=== PATIENT | female | born 1995 | race Caucasian/White ===

== ENCOUNTER → 2017-12-22 14:30 | Outpatient (CLI) | payer OTHER, SELFPAY ==
--- NOTE | 2017-12-22 14:36 | US_ITS ---
US thyroid HISTORY: ITS.REASON: THYROID NODULE ORDERING PHYSICIAN: Mini Jaramillo PATIENT AGE: 22 years COMPARISON: 09/04/2014 FINDINGS: The right lobe is 4.2 x 1.2 x 1.7 cm. A 4 mm mixed hypoechoic nodule upper pole. 3 mm hypoechoic nodule upper pole. 4 mm hypoechoic nodule mid polar region. 8 mm mixed hypoechoic nodule lower pole and 5 mm mixed hypoechoic nodule lower lobe. 4 mm hypoechoic nodule lower lobe medially. The left lobe is 4.2 x 1.2 x 1.8 cm with multiple hypoechoic nodules including a 3 mm nodule in the upper pole medially, 4 mm upper pole laterally,. There is a mixed solid and cystic nodule in the lower pole 1 cm. Previously there were multiple small hypoechoic regions in the lower pole. The isthmus has an unremarkable appearance. IMPRESSION: Multiple small thyroid nodular lesions which have low level of suspicion for malignancy. Consider 6 month follow-up of the lower pole nodule on the left as it does have a somewhat different appearance but is probably benign
== END ==
PROVIDERS: Family Provider Nurse Practitioner Family; PCP Nurse Practitioner Family; Visit Provider Nurse Practitioner Family
DX: E04.1 Nontoxic single thyroid nodule (principal)
CPT/HCPCS: 76536

== ENCOUNTER → 2018-04-10 07:58 | Outpatient (CLI) | payer OTHER, SELFPAY ==
--- NOTE | 2018-04-10 08:00 | US_ITS ---
US transvaginal HISTORY: Dysfunctional uterine bleeding ITS.REASON: 09/25/2012 PAIN ORDERING PHYSICIAN: Mini Jaramillo PATIENT AGE: 22 years Comparison: 09/25/2012 FINDINGS: UTERUS: The uterus measures 6.7 x 2.2 x 3.4 cm.. Combined endometrial thickness is Endometrial thickness. 0.2 cm RIGHT OVARY: 3.5 x 1.8 x 2.5 cm. There are multiple small follicular cysts noted. LEFT OVARY: 4.6 x 1.8 x 1.7 cm. There are few small follicular cysts noted. CUL-DE-SAC FLUID: No cul-de-sac fluid apparent OTHER FINDINGS: None IMPRESSION: Grossly normal-appearing uterus, small follicular cysts in each ovary noted
== END ==
PROVIDERS: Family Provider Nurse Practitioner Family; PCP Nurse Practitioner Family; Visit Provider Nurse Practitioner Family
DX: R10.2 Pelvic and perineal pain (principal)
CPT/HCPCS: 76830

== ENCOUNTER → 2019-04-06 12:12 | Outpatient (CLI) | payer OTHER, SELFPAY ==
--- NOTE | 2019-04-06 12:21 | XR_ITS ---
EXAM: XR cervical spine 5V HISTORY: ITS.REASON: NECK PAIN ORDERING PHYSICIAN: Mini Jaramillo APRN PATIENT AGE: 23 years COMPARISON: Soft tissue views of the neck 10/02/2016 FINDINGS: There is straightening of the normal curvature suggesting muscle spasm though there is similar straightening of the curvature seen on the soft tissue views of the neck and this may be a normal variation in this patient. C1-C7 appear intact with no fracture or subluxation noted. Oblique films show normal neural foramina bilaterally. Disc spaces are well maintained throughout. The prevertebral soft tissues are normal and the odontoid is normal. IMPRESSION: Grossly normal cervical spine though with possible muscle spasm versus normal variation of curvature as mentioned above
== END ==
PROVIDERS: PCP Nurse Practitioner Family; Visit Provider Nurse Practitioner Family
DX: M43.6 Torticollis (principal); M50.30 Other cervical disc degeneration, unspecified cervical region
CPT/HCPCS: 72050

== ENCOUNTER → 2019-05-08 20:13 | Outpatient (CLI) | payer OTHER, SELFPAY | PROVIDERS: PCP Nurse Practitioner Family; Visit Provider Nurse Practitioner Family | DX: R00.2 Palpitations (principal) ==

== ENCOUNTER → 2019-05-11 10:13 | Outpatient (CLI) | payer OTHER, SELFPAY | PROVIDERS: PCP Nurse Practitioner Family; Visit Provider Nurse Practitioner Family | DX: R00.2 Palpitations (principal) | CPT/HCPCS: 93225; 93226 ==

== ENCOUNTER → 2019-06-01 11:01 | Outpatient (CLI) | payer OTHER, SELFPAY | PROVIDERS: PCP Nurse Practitioner Family; Visit Provider Internal Medicine Cardiovascular Disease | DX: R00.2 Palpitations (principal); R06.02 Shortness of breath; R94.31 Abnormal electrocardiogram [ECG] [EKG]; R00.0 Tachycardia, unspecified | CPT/HCPCS: 93270 ==

== ENCOUNTER → 2019-06-29 15:04 | Outpatient (CLI) | payer OTHER, SELFPAY ==
--- NOTE | 2019-06-29 15:06 | CA_ITS ---
APPROVED REPORT EXAM: Comprehensive 2D, Doppler, and color-flow Echocardiogram Inspector Type: Lakshmi Ibarra CRT Ht: 5 ft 11 in Wt: 241lbs BSA: 2.28 BP: 120/82 mmHg Indications: SVT, palpitations, abn holter, sob, 2D Dimensions LVOT 2.10 cm (M/F) 1.5-2.5 M-Mode Dimensions RVDd 2.10 cm (0.9-2.6) LA Diam 3.70 cm (1.9-4.0) LVDd 5.20 cm (3.5-5.7) Ao Diam 3.10 cm (2.0-3.7) LVDs 3.50 cm (3.5-5.7) AV Cusp 2.10 cm (1.5-2.6) IVSd 0.90 cm (0.6-1.1) PWd 1.10 cm (0.6-1.1) EF (Teich) 60.80% FS 32.70% EDV (Teich) 130.00 mL ESV (Teich) 50.90 mL LV Diastology E/A Ratio 1.40 MED E' 9.46 (< 7 cm/sec) E'/MED E' Ratio 11.00 (>14) LAT E' 21.00 (<10 cm/sec) E/LAT E' Ratio 5.00 (>14) Aortic Valve AoV Peak Avi. 143.00 (50-130 cm/s) AO Peak GR. 8.00 mmHg Mitral Valve MV E Max Avi. 104.00 (40-130 cm/s) MV A Velocity 73.10 (40-130 cm/s) E/A Ratio 1.40 Pulmonary Valve AK End VMAX 85.50 cm/s PA Accel Time 173.00 (>120 msec) Tricuspid Valve TR P. Velocity 257.00 cm/s RAP Estimate 10.00 mmHg RVSP 36.00 mmHg Left Ventricle Left atrium is normal size, left ventricle is normal size, there is no concentric left ventricular hypertrophy, visually estimated ejection fraction 55% with no regional wall motion abnormality, diastolic parameters are within normal range. Right Ventricle Right atrium and right ventricular normal size and contractility. Aortic Valve Aortic valve is normal. There is no aortic stenosis aortic insufficiency. Mitral Valve Mitral valve is grossly normal, there is mild mitral regurgitation. Tricuspid Valve Tricuspid valve is grossly normal, there is mild tricuspid regurgitation. Pulmonic Valve Pulmonic valve is poorly visualized. Great Vessels Aortic root is normal size. Pericardium No significant pericardial effusion noted. Conclusion 1. Normal left ventricular size, preserved left ventricular systolic function, visually estimated ejection fraction of 55% with no regional wall motion abnormality. Diastolic parameters are within normal range. 2. Mild mitral and tricuspid regurgitation 3. No significant pericardial effusion noted. Electronically signed by : [place], 07/03/2019 06:17:38
== END ==
PROVIDERS: PCP Nurse Practitioner Family; Visit Provider Internal Medicine Cardiovascular Disease
DX: R06.02 Shortness of breath (principal); R00.0 Tachycardia, unspecified; R00.2 Palpitations; R94.31 Abnormal electrocardiogram [ECG] [EKG]
CPT/HCPCS: 93306

== ENCOUNTER → 2019-09-14 12:26 | Outpatient (CLI) | payer OTHER, SELFPAY ==
[2019-09-14 13:02] LABS: Basophils % 0.4 % (0.1-2.0); Eosinophils # 0.2 K/mm3 (0.0-0.4); Eosinophils % 1.9 % (0.1-12.0); Hematocrit 43.9 % (37.0-47.0); Hemoglobin 14.5 g/dL (12.2-16.2); Lymphocytes % 21.3 % (10-50); Mean Corpuscular Hemoglobin 28.8 pg (27.0-31.2); Mean Corpuscular Volume 87.1 fl (81-99); Monocytes # 0.4 K/mm3 (0.1-1.0); Monocytes % 3.8 % (1.7-9.3); Neutrophils # 6.7 K/mm3 (1.8-7.8); Neutrophils % 72.4 % (37.0-80.0); Platelet Count 375 K/mm3 (142-424); Red Blood Count 5.04 M/mm3 (4.20-5.40); Red Cell Distribution Width 12.6 % (11.5-17.5); White Blood Count 9.3 K/mm3 (4.8-10.8)
[2019-09-14 14:30] LABS: Ferritin 49 ng/mL (8-388)
[2019-09-15 13:05] LABS: Vitamin B12 732 pg/mL (232-1245)
== END ==
PROVIDERS: Visit Provider Nurse Practitioner Family
DX: E53.8 Deficiency of other specified B group vitamins (principal); R53.83 Other fatigue
CPT/HCPCS: 36415; 82607; 82728; 85025

== ENCOUNTER 2020-01-29 17:45 | Emergency (ER) | payer OTHER, SELFPAY ==
[2020-01-29 17:47] VITALS: BP 134/97; PULSE 79; RESP 19; TEMP 36.8; O2SAT 100; BMI 33.2
--- NOTE | 2020-01-29 18:05 | XR_ITS ---
PROCEDURE: XR HAND RT MIN 3V CLINICAL INDICATION: dog bite Injury with pain, puncture wound COMPARISON: No exams were available for comparison FINDINGS: No fracture or dislocation. No lytic or blastic change. There is normal mineralization. The joint spaces are well-preserved. No significant degenerative/arthritic changes. No erosive changes evident. Other findings:No radiopaque foreign body in the hand or wrist IMPRESSION: No acute findings. Dictated by: Michael Alexandre MD 01/29/2020 19:52 Electronically signed by Michael Alexandre MD in [place] 01/29/2020 19:52
--- NOTE | 2020-01-29 18:05 | XR_ITS ---
PROCEDURE: XR WRIST RT MIN 3V CLINICAL INDICATION: dog bite Injury with pain, puncture wound COMPARISON: No exams were available for comparison FINDINGS: No fracture or dislocation. No radiopaque foreign body. Small bone islands of the scaphoid and capitate IMPRESSION: No acute findings. Dictated by: Michael Alexandre MD 01/29/2020 19:51 Electronically signed by Michael Alexandre MD in [place] 01/29/2020 19:51
--- NOTE | 2020-01-29 18:25 | HMH.EDUTC ---
[facility] [place] Clinical Impression: Need for Tdap vaccination Dog bite of right hand Qualifiers: Encounter type: initial encounter Qualified Code(s): S61.451A - Open bite of right hand, initial encounter Disposition: Home, Self-Care Condition on Discharge: Good Instructions: DI for Dog Bite Additional Instructions: Keep the wounds clean and dry. Follow up with your regular doctor. Take the antibiotics as directed and apply the topical antibiotics as directed. Make sure you stay in contact with the health department regarding the health of the dog. Watch the puncture wounds for signs of worsening infection, such as worsening redness, drainage, swelling, etc. GO TO THE ER FOR ANY WORSENING SYMPTOMS Prescriptions: Mupirocin [Bactroban 2% Ointment 22gm tube] 1 applicatio TP TID 7 Days #1 tube Transmission Status: Received by [facility] cephALEXin [Keflex 500mg Cap] 500 mg PO Q6H 10 Days #40 cap Transmission Status: Received by [facility] Referrals: Mini Jaramillo APRN [Primary Care Provider] - Forms: Work/School Release Time of Disposition: 18:29 Medical Decision Making - Medical Records Medical records reviewed: No: I reviewed the patient's medical records. - [place] Inquiry Pt receiving controlled substance: No Vital Signs: 01/29/20 17:47 Temperature 98.2 F Temperature Source Oral Pulse Rate [Radial] 79 Respiratory Rate 19 Blood Pressure [Right Arm] 134/97 H Blood Pressure Mean [Right Arm] 109 Blood Pressure Source [Right Arm] Automatic Cuff Blood Pressure Position [Right Arm] Sitting 02 Sat by Pulse Oximetry 100 Oxygen Delivery Method Room Air Orders (Tests/Meds): ED MEDICATIONS Discontinued Medications Generic Name Dose Route Start Last Admin Trade Name Freq PRN Reason Stop Dose Admin Tetanus/Reduced Diphtheria/Acell Pertussis 0.5 ml 01/29/20 18:05 01/29/20 18:10 Adacel Tdap 0.5ml Syringe IM 01/29/20 18:06 0.5 ml .ONCE ONE Administration ORDERS Category Date Time Status Wrist XR right minimum 3 views [XR wrist RT min 3V] Exams 01/29/20 18:05 Taken Stat XR hand RT min 3V Stat Exams 01/29/20 18:05 Taken [facility] [place] HPI - General Stated complaint: AO 0504@2300 dog bit R Hand Time Seen by Provider: 01/29/20 17:55 Mode of Arrival: Ambulatory Source of Information: Patient Limitations: No Limitations Description of Symptoms (Recalled from Triage Doc. by RN): dog bite to right hand from01/28/20 HEENT Symptoms (Recalled from RN notes): No Resp Symptoms (Recalled from RN notes): No Skin Symptoms (Recalled from RN notes): Yes MS Symptoms (Recalled from RN notes): No Functional Status (Recalled from RN notes): wnl - History of Present Illness Provider Complaint: She states that she was bit by her own dog yesterday on her right hand. She states that the dog was asleep and she woke it up and scared it, so it snapped at her and caught her hand. Her tetanus immunization is not up to date. She states that the dog is healthy. - Related Data Home Medications Medication Instructions Recorded Confirmed cetirizine 10 mg capsule 10 mg PO DAILY 06/01/19 08/30/19 famotidine 40 mg tablet 40 mg PO DAILY 30 Days #30 tab 06/01/19 08/30/19 hydroxyzine HCl 25 mg tablet 75 mg PO QHS 30 Days #90 tab 06/01/19 08/30/19 montelukast 10 mg tablet 10 mg PO DAILY 30 Days #30 tab 06/01/19 08/30/19 sertraline 100 mg tablet 100 mg PO DAILY 30 Days #30 tab 06/01/19 08/30/19 norethindrone 1 mg-ethin. 1 cap PO #0 cap 08/30/19 08/30/19 estradiol 20 mcg (24)-iron 75 mg (4) capsule Previous Rx's Medication Instructions Recorded metoprolol succinate 25 mg 37.5 mg PO DAILY #60 tab 11/22/19 tablet,extended release 24 hr Mupirocin [Bactroban 2% Ointment 1 applicatio TP TID 7 Days #1 tube 01/29/20 22gm tube] cephALEXin [Keflex 500mg Cap] 500 mg PO Q6H 10 Days #40 cap 01/29/20 Allergies Allergy/AdvReac Type Severity Reactio
[2020-01-29 18:37] VITALS: BP 134/97; PULSE 79; RESP 19; TEMP 36.8; O2SAT 100
== END 2020-01-29 18:38 | disposition home or self-care (01) ==
PROVIDERS: Emergency Provider Nurse Practitioner Family; PCP Nurse Practitioner Family
DX: S61.451A Open bite of right hand, initial encounter (principal); W54.0XXA Bitten by dog, initial encounter; Y92.019 Unspecified place in single-family (private) house as the place of occurrence of the external cause; K21.9 Gastro-esophageal reflux disease without esophagitis; Z23 Encounter for immunization; F33.1 Major depressive disorder, recurrent, moderate; Z88.0 Allergy status to penicillin; Z88.2 Allergy status to sulfonamides; Z90.09 Acquired absence of other part of head and neck; Z79.899 Other long term (current) drug therapy
CPT/HCPCS: 73110; 73130; 90471; 90715; 99201

== ENCOUNTER → 2020-04-17 09:04 | Outpatient (CLI) | payer OTHER, SELFPAY ==
--- NOTE | 2020-04-17 09:19 | CT_ITS ---
PROCEDURE: CT ABDOMEN PELVIS W CON CLINICAL INDICATION: ABD PAIN Bilateral lower pelvic pain, upper abdominal pain with nausea COMPARISON: ABDPELW/O CT ABD PELVIS W/O CONTRAST from 10/05/2016 TECHNIQUE: IV Contrast: 75ML OPTIRAY 350 Oral Contrast None Axial images obtained with sagittal and coronal reformats. All CT scans at the facility use one or more dose reduction, viz: automated exposure control, ma/kV adjustment per patient size (including targeted exams where dose is matched to indication, i.e. head), or iterative reconstruction technique. FINDINGS: LOWER THORAX: No acute finding ABDOMEN & PELVIS: Prior cholecystectomy. The liver, spleen adrenal glands, pancreas, and kidneys have an unremarkable appearance. There are few small nodes in the mesenteries and perigastric region nonspecific. No evidence of intestinal obstruction or free air. No evidence of appendicitis. The uterus is anteverted. There is minimal amount of fluid in the pelvis which may be physiologic. There are degenerative changes in the lower thoracic spine with mild thoracolumbar kyphosis IMPRESSION: No acute abdominal or pelvic findings. Previously there was some mildly prominent lymph nodes at the gastroesophageal junction. These have decreased in size Dictated by: Michael Alexandre MD 04/17/2020 18:08 Electronically signed by Michael Alexandre MD in [place] 04/17/2020 18:08
== END ==
PROVIDERS: PCP Nurse Practitioner Family; Visit Provider Nurse Practitioner Family
DX: R10.31 Right lower quadrant pain (principal)
CPT/HCPCS: 74177; Q9967

== ENCOUNTER → 2020-07-11 12:36 | Outpatient (CLI) | payer OTHER, SELFPAY ==
[2020-07-12 09:03] LABS: Covid-19 Nasal PCR Sendout UK NOT DETECTED
[2020-07-15 07:57] LABS: EBV Ab VCA, IgG 88.2 U/mL (0.0-17.9); EBV Ab VCA, IgM <36.0 U/mL (0.0-35.9)
== END ==
PROVIDERS: PCP Nurse Practitioner Family; Visit Provider Nurse Practitioner Family
DX: Z03.818 Encounter for observation for suspected exposure to other biological agents ruled out (principal)
CPT/HCPCS: 86664; 86665; U0003

== ENCOUNTER → 2020-08-12 09:58 | Outpatient (POV) | payer OTHER, SELFPAY | PROVIDERS: Visit Provider Otolaryngology | DX: Z00.00 Encounter for general adult medical examination without abnormal findings (principal) ==

== ENCOUNTER → 2021-02-12 12:50 | Outpatient (CLI) | payer OTHER, SELFPAY ==
--- NOTE | 2021-02-12 12:58 | US_ITS ---
PROCEDURE: US THYROID CLINICAL INDICATION: THYROID NODULE COMPARISON: US THY US thyroid from 12/22/2017 FINDINGS: Right lobe: 4.2 x 1.2 x 2.2 cm. 4 benign-appearing TR level 2 nodules 5 mm or less not significantly changed. Left lobe: 4.3 x 1.1 x 1.8 cm. 4 TR level 2 nodules noted not significantly changed. No suspicious nodule apparent. Isthmus: Unremarkable Additional findings: IMPRESSION: Overall no change in the benign-appearing small bilateral thyroid nodules Dictated by: Michael Alexandre MD 02/12/2021 16:01 Michael Alexandre MD in [place] 02/12/2021 16:01
== END ==
PROVIDERS: PCP Nurse Practitioner Family; Visit Provider Nurse Practitioner Family
DX: E04.1 Nontoxic single thyroid nodule (principal)
CPT/HCPCS: 76536

== ENCOUNTER → 2021-09-25 12:34 | Outpatient (CLI) | payer OTHER, SELFPAY ==
--- NOTE | 2021-09-25 12:39 | XR_ITS ---
PROCEDURE INFORMATION: Exam: XR Chest Exam date and time: 09/25/2021 12:39 PM Age: 25 years old Clinical indication: Chest wall pain; Additional info: Chest pain TECHNIQUE: Imaging protocol: XR of the chest. Views: 2 views. COMPARISON: CT ABDOMEN PELVIS W CON 04/17/2020 9:37 AM FINDINGS: Lungs: Unremarkable. No consolidation. Pleural spaces: Unremarkable. No pleural effusion. No pneumothorax. Heart/Mediastinum: Unremarkable. No cardiomegaly. Bones/joints: No acute findings. IMPRESSION: No acute findings.
== END ==
PROVIDERS: PCP Nurse Practitioner Family; Visit Provider Nurse Practitioner Family
DX: R07.9 Chest pain, unspecified (principal)
CPT/HCPCS: 71046

== ENCOUNTER → 2021-11-06 13:37 | Outpatient (CLI) | payer OTHER, SELFPAY | PROVIDERS: PCP Nurse Practitioner Family; Visit Provider Nurse Practitioner | DX: Z20.822 Contact with and (suspected) exposure to COVID-19 (principal) | CPT/HCPCS: C9803; U0003; U0005 ==

== ENCOUNTER → 2021-12-31 13:36 | Outpatient (CLI) | payer OTHER, SELFPAY ==
[2021-12-31 14:23] LABS: Basophils # 0.1 K/mm3 (0-0.2); Basophils % 1.1 % (0.1-2.0); Eosinophils # 0.6 K/mm3 (0.0-0.4); Eosinophils % 5.5 % (0.1-12.0); Hematocrit 42.1 % (37.0-47.0); Lymphocytes # 3.9 K/mm3 (0.7-4.5); Lymphocytes % 33.2 % (10-50); Mean Corpuscular HGB Conc 33.2 g/dL (31.8-35.4); Mean Corpuscular Hemoglobin 29.1 pg (27.0-31.2); Mean Corpuscular Volume 87.6 fl (81-99); Mean Platelet Volume 8.1 fl (7.4-10.4); Monocytes # 0.5 K/mm3 (0.1-1.0); Monocytes % 4.2 % (1.7-9.3); Neutrophils # 6.6 K/mm3 (1.8-7.8); Platelet Count 390 K/mm3 (142-424); Red Cell Distribution Width 13.2 % (11.5-17.5); White Blood Count 11.7 K/mm3 (4.8-10.8)
[2021-12-31 14:58] LABS: Alanine Aminotransferase 22 U/L (12-78); Albumin Level 4.2 g/dl (3.5-5.0); Albumin/Globulin Ratio 1.6 (1.1-1.8); Alkaline Phosphatase 70 U/L (38-126); Anion Gap 12.2 mEq/L (5-15); Aspartate Amino Transferase 24 U/L (14-36); Bilirubin,Total 0.5 mg/dl (0.2-1.3); Blood Urea Nitrogen 9 mg/dl (7-17); Carbon Dioxide 26 mmol/L (22.0-30.0); Chloride 104 mmol/L (98-107); Estimated Glomerular Filt Rate 103 ml/min (>60); GFR (African American) 124 ML/MIN (>60); Globulin 2.7 g/dL (1.3-3.2); Glucose 93 mg/dl (74-100); Potassium 4.2 mmoL/L (3.5-5.1); Sodium 138 mmol/L (136-145); Total Protein,Serum 6.9 g/dl (6.3-8.2)
[2021-12-31 16:40] LABS: Vitamin B12 > 1000 pg/mL (239-931)
== END ==
PROVIDERS: PCP Nurse Practitioner Family; Visit Provider Nurse Practitioner Family
DX: R53.83 Other fatigue (principal); E53.8 Deficiency of other specified B group vitamins
CPT/HCPCS: 36415; 80053; 82607; 85025

== ENCOUNTER → 2022-02-07 15:28 | Outpatient (CLI) | payer OTHER, SELFPAY ==
[2022-02-07 15:47] LABS: Coronavirus 19, PCR Not Detected (NotDetected); Influenza A, PCR Not Detected (NotDetected); Influenza B, PCR Not Detected (NotDetected)
== END ==
PROVIDERS: PCP Nurse Practitioner Family; Visit Provider Nurse Practitioner Family
DX: Z11.52 Encounter for screening for COVID-19 (principal)
CPT/HCPCS: C9803; U0003; U0005

== ENCOUNTER → 2022-03-24 15:04 | Outpatient (CLI) | payer OTHER, SELFPAY ==
[2022-03-24 16:04] LABS: Free T4 (Free Thyroxine) 1.07 ng/dl (0.78-2.19)
[2022-03-24 16:19] LABS: Thyroid Stimulating Hormone 0.74 uIU/mL (0.465-4.68)
== END ==
PROVIDERS: PCP Physician Assistant Surgical; Visit Provider Student in an Organized Health Care Education/Training Program
DX: E04.1 Nontoxic single thyroid nodule (principal)
CPT/HCPCS: 36415; 84439; 84443

== ENCOUNTER → 2022-04-12 12:22 | Outpatient (CLI) | payer OTHER, SELFPAY | PROVIDERS: PCP Nurse Practitioner Family; Visit Provider Nurse Practitioner Family | DX: Z20.822 Contact with and (suspected) exposure to COVID-19 (principal) | CPT/HCPCS: C9803; U0003; U0005 ==

== ENCOUNTER → 2022-05-05 13:13 | Outpatient (CLI) | payer OTHER, SELFPAY ==
--- NOTE | 2022-05-05 | MR_ITS ---
FINAL REPORT CLINICAL HISTORY: NEW ONSET OF MIGRAINE HEADACHES X6 MONTHS FINDINGS: Multiplanar MR imaging of the brain was performed without contrast. There is no evidence of intracranial hemorrhage or mass. The ventricular size is normal. There is no evidence of shift of the midline structures. No abnormal extra-axial fluid collection is identified. The posterior fossa and brainstem have an unremarkable appearance. No area of abnormal restricted diffusion is identified. Normal major vessel vascular flow voids are seen. IMPRESSION: Unremarkable brain with no acute intracranial abnormality. Reviewed, Interpreted and Dictated by David Mccray III, MD Transcribed by Bri Taylor Authenticated and . [facility]
== END ==
PROVIDERS: PCP Nurse Practitioner Family; Visit Provider Nurse Practitioner Family
DX: G44.52 New daily persistent headache (NDPH)
CPT/HCPCS: 70551

== ENCOUNTER → 2022-06-07 08:12 | Outpatient (CLI) | payer OTHER, SELFPAY | PROVIDERS: PCP Nurse Practitioner Family; Visit Provider Specialist | DX: G47.30 Sleep apnea, unspecified (principal); R06.83 Snoring | CPT/HCPCS: 95806 ==

== ENCOUNTER → 2022-06-28 08:51 | Outpatient (CLI) | payer OTHER, SELFPAY ==
--- NOTE | 2022-06-28 08:53 | MR_ITS ---
FINAL REPORT CLINICAL HISTORY: CERVICALGIA. HEADACHE. NECK PAIN. INTERMITTENT TINGLING ON RIGHT SIDE OF NECK. SYMPTOMS XYEARS. NO RECENT INJURY OR TRAUMA. FINDINGS: Multiplanar MR imaging of the cervical spine was performed without contrast. On the sagittal T2-weighted images, disc degeneration is seen at multiple levels. There is no evidence of fracture. The vertebral alignment is normal. The cervical spinal cord has an unremarkable appearance without evidence of mass, edema or syrinx. No significant canal stenosis is identified. The cervicomedullary junction is normal. C2-3: There is no significant canal stenosis or neural foraminal narrowing. C3-4: There is no significant canal stenosis or neural foraminal narrowing. C4-5: Small central disc protrusion is present. There is no significant canal stenosis or neural foraminal narrowing. C5-6: Small left paracentral disc protrusion is present. There is no significant canal stenosis or neural foraminal narrowing. C6-7: An annular bulge is present. There is no significant canal stenosis or neural foraminal narrowing. C7-T1: There is no significant canal stenosis or neural foraminal narrowing. IMPRESSION: Disc protrusions at C4-5 and C5-6 as above. Reviewed, Interpreted and Dictated by David Mccray III, MD Transcribed by Bri Taylor Authenticated and [facility]
== END ==
PROVIDERS: PCP Nurse Practitioner Family; Visit Provider Nurse Practitioner Family
DX: M54.2 Cervicalgia (principal); R20.2 Paresthesia of skin; R20.0 Anesthesia of skin
CPT/HCPCS: 72141; 76376

== ENCOUNTER 2022-07-31 09:04 | Emergency (ER) | payer OTHER, SELFPAY ==
--- NOTE | 2022-07-31 09:15 | EXP.UTC ---
Discharge Plan Disposition Patient Disposition: Home, Self-Care Condition: Good Prescriptions Prescriptions: New vpxltbfmbdfkwns-zxjajcwkb-DS [Bromfed DM] 2-30-10 mg/5 mL Syrup 5 ml PO Q6H PRN (Reason: Cough) Qty: 240 0RF oseltamivir [Tamiflu] 75 mg capsule 75 mg PO BID Qty: 10 0RF ondansetron 4 mg Tablet,Disintegrating 4 mg PO Q8H PRN (Reason: Nausea) Qty: 12 0RF methylprednisolone 4 mg Tablets,Dose Pack 4 mg PO DIRECTED Qty: 21 0RF albuterol sulfate [Ventolin HFA] 90 mcg/actuation HFA aerosol inhaler 2 puff inhalation Q6H PRN (Reason: Shortness Of Breath Or Wheezing) Qty: 6.7 0RF No Action montelukast 10 mg tablet 10 mg PO DAILY 30 Days Qty: 30 Zyrtec 10 mg capsule 10 mg PO DAILY norethindrone-e.estradiol-iron 1 mg-20 mcg (24)/75 mg (4) capsule 1 cap PO Qty: 0 buspirone 15 mg tablet 15 mg PO ONCE fluoxetine 20 mg capsule 30 mg PO DAILY metoprolol succinate 25 mg tablet extended release 24 hr See Rx Instructions .ROUTE .COMPLEX Qty: 60 0RF Dose Instruction: TAKE 1 AND 1/2 TABLET BY MOUTH DAILY Rx Instructions: TAKE 1 AND 1/2 TABLET BY MOUTH DAILY. Needs follow up appt for refills Referrals Follow up/Referrals: Mini Jaramillo APRN [Primary Care Provider] - See instructions Clinical Impressions Clinical Impression: Influenza A Stand Alone Forms Stand Alone Forms: Work/School Release Instructions Patient Instructions: DI for Influenza -- Adult, Oseltamivir Discharge ED Provider: Josafat Damon [facility] General Stated complaint: Congestion,Cough Time Seen by Provider: 07/31/22 09:13 History of Present Illness Provider Complaint: She states that since yesterday she has had a fever, chills, body aches, and cough. She has a sore throat also. Related Data Home Medications Medication Instructions Recorded Confirmed cetirizine 10 mg capsule (Zyrtec) 10 mg PO DAILY 06/01/19 07/26/22 montelukast 10 mg tablet 10 mg PO DAILY 30 days #30 tabs 06/01/19 07/26/22 norethindrone 1 mg-ethin. 1 cap PO #0 caps 08/30/19 07/26/22 estradiol 20 mcg (24)-iron 75 mg (4) capsule buspirone 15 mg tablet 15 mg PO ONCE 03/24/22 07/26/22 fluoxetine 20 mg capsule 30 mg PO DAILY 07/26/22 07/26/22 Previous Rx's Medication Instructions Recorded metoprolol succinate 25 mg See Rx Instructions .Route 12/01/20 tablet,extended release 24 hr .COMPLEX #60 tabs albuterol sulfate 90 mcg/actuation 2 puff inhalation Q6H PRN 07/31/22 aerosol inhaler (Ventolin HFA) Shortness Of Breath Or Wheezing #6.7 grams gekysuzhvgaslnf-ujvbgrkrucuufhv-RP 5 ml PO Q6H PRN Cough #240 mL 07/31/22 2 mg-30 mg-10 mg/5 mL oral syrup (Bromfed DM) methylprednisolone 4 mg tablets in 4 mg PO DIRECTED #21 tabs 07/31/22 a dose pack ondansetron 4 mg disintegrating 4 mg PO Q8H PRN Nausea #12 tabs 07/31/22 tablet oseltamivir 75 mg capsule (Tamiflu) 75 mg PO BID #10 caps 07/31/22 Allergies Allergy/AdvReac Type Severity Reaction Status Date / Time Penicillins [PENICILLINS] Allergy Unknown Verified 07/31/22 09:34 Sulfa (Sulfonamide Allergy Unknown Verified 07/31/22 09:34 Antibiotics) [SULFA (SULFONAMIDE ANTIBIOTICS)] PFSH PFSH Family History Other Cancer Coronary artery disease Diabetes FHx: mental illness Heart attack Hypertension Social History Smoking Status: Never smoker alcohol intake: never substance use type: denies use current occupational status: employed Travel in the last 8 weeks: None housing: house number of children: 0 ROS Obtained: Yes All systems reviewed & no additional complaints except as documented Constitutional Constitutional: Reports chills and Reports fever(s) Eyes Eyes: Denies eye discharge ENT Ears, Nose, Mouth, and Throat: Reports as per HPI Cardiovascular Cardiovascular: Den
[2022-07-31 09:29] VITALS: BP 141/89; PULSE 129; RESP 18; TEMP 37.2; O2SAT 100; BMI 39.7
[2022-07-31 09:36] LABS: UTC Strep Screen (Rapid) Negative (Negative)
[2022-07-31 09:39] LABS: UTC Influenza A Antigen Positive (Negative); UTC Influenza B Antigen Negative (Negative)
[2022-07-31 10:08] VITALS: BP 141/89; PULSE 129; RESP 18; TEMP 37.2
== END 2022-07-31 10:12 | disposition home or self-care (01) ==
PROVIDERS: Emergency Provider Nurse Practitioner Family; PCP Nurse Practitioner Family
DX: J10.1 Influenza due to other identified influenza virus with other respiratory manifestations (principal)
CPT/HCPCS: 87804; 87880; 99212; G0463

== ENCOUNTER → 2022-09-01 14:15 | Outpatient (CLI) | payer OTHER, SELFPAY | PROVIDERS: PCP Nurse Practitioner Family; Visit Provider Nurse Practitioner | DX: R06.02 Shortness of breath (principal); R00.2 Palpitations; I49.9 Cardiac arrhythmia, unspecified; Z86.79 Personal history of other diseases of the circulatory system | CPT/HCPCS: 93270 ==

== ENCOUNTER → 2022-09-21 11:02 | Outpatient (CLI) | payer OTHER, SELFPAY ==
--- NOTE | 2022-09-21 11:05 | CA_ITS ---
APPROVED REPORT EXAM: Comprehensive 2D, Doppler, and color-flow Echocardiogram Customer Sales Specialist: BHAVIK Swan, RVS Ht: 5 ft 10 in Wt: 269lbs BSA: 2.37 BP: 128/98 mmHg Rhythm: NSR Indications: SOA, Hx-SVT, Cardiac arrythmia Echo Enhancing Agent Comments: Large body habitus acoustic attenuation 2D Dimensions LA Volume 45.40 mL LA Volume Index 19.20 mL/m2 (M/F) 16-34 M-Mode Dimensions RVDd 3.30 cm (0.9-2.6) LA Diam 3.79 cm (1.9-4.0) LVDd 5.22 cm (3.5-5.7) Ao Diam 2.66 cm (2.0-3.7) LVDs 3.94 cm (3.5-5.7) IVSd 1.00 cm (0.6-1.1) PWd 0.84 cm (0.6-1.1) EF (Teich) 48.40% EPSs 0.81 cm FS 24.50% EDV (Teich) 130.70 mL TAPSE 2.13 (<1.7) ESV (Teich) 67.50 mL LV Diastology E Decel Time 203.00 (160-240 msec) E/A Ratio 2.51 MED E' 10.80 (< 7 cm/sec) MED A' 8.50 cm/s E'/MED E' Ratio 8.23 (>14) LAT E' 17.40 (<10 cm/sec) LAT A' 10.70 cm/s E/LAT E' Ratio 5.11 (>14) Aortic Valve LVOT Max 99.00 (70-110 cm/s) LVOT VTI 20.38 cm AoV Peak Avi. 117.00 (50-130 cm/s) AO Peak GR. 5.50 mmHg AO Mean GR. 2.70 (<5 mmHg) AO VTI 23.56 (18-25 cm) Mitral Valve MV A Velocity 35.00 (40-130 cm/s) E/A Ratio 2.51 MV Decel. Time 203.00 (160-240 ms) Pulmonary Valve PV Peak Velocity 63.00 (50-150 cm/s) Tricuspid Valve TR P. Velocity 174.00 cm/s RAP Estimate 10.00 mmHg RVSP 22.20 mmHg Left Ventricle Left atrium is normal size, left ventricle is normal size, estimated ejection fraction 55% with no regional wall motion abnormality, diastolic parameters are within normal range. Right Ventricle Right atrium and right ventricle are relatively normal size and function. Aortic Valve Aortic valve is grossly normal, there is no aortic stenosis or aortic insufficiency. Mitral Valve Mitral valve grossly normal, there is no significant mitral regurgitation. Tricuspid Valve Tricuspid grossly normal, there is no significant tricuspid regurgitation, tricuspid regurgitation jet velocity is inadequate for calculation of the right ventricular systolic pressure. Pulmonic Valve Pulmonic valve is poorly visualized. Great Vessels Aortic root is normal size. Inferior vena cava is normal size with normal inspiratory collapse. Pericardium No significant pericardial effusion noted. Conclusion 1. Normal left ventricular size, preserved left ventricular systolic function, estimated ejection fraction 55% with no regional wall motion abnormality, diastolic parameters are within normal range. 2. No significant pericardial effusion noted. 3. Inferior vena cava is normal size with normal spectral collapse. Electronically signed by : [place] Nicholas MD 09/21/2022 16:55:22
== END ==
PROVIDERS: PCP Nurse Practitioner Family; Visit Provider Nurse Practitioner
DX: R06.02 Shortness of breath (principal); R00.2 Palpitations; I49.9 Cardiac arrhythmia, unspecified; Z86.79 Personal history of other diseases of the circulatory system
CPT/HCPCS: 93306

== ENCOUNTER → 2022-10-25 10:28 | Outpatient (CLI) | payer OTHER, SELFPAY ==
[2022-10-25 11:57] LABS: Basophils # 0.1 K/mm3 (0-0.2); Basophils % 1.3 % (0.1-2.0); Eosinophils # 0.7 K/mm3 (0.0-0.4); Hematocrit 45.6 % (37.0-47.0); Hemoglobin 14.9 g/dL (12.2-16.2); Lymphocytes # 2.9 K/mm3 (0.7-4.5); Lymphocytes % 28.4 % (10-50); Mean Corpuscular HGB Conc 32.7 g/dL (31.8-35.4); Mean Corpuscular Hemoglobin 28.3 pg (27.0-31.2); Mean Corpuscular Volume 86.4 fl (81-99); Mean Platelet Volume 7.8 fl (7.4-10.4); Monocytes # 0.3 K/mm3 (0.1-1.0); Monocytes % 3.1 % (1.7-9.3); Neutrophils # 6.1 K/mm3 (1.8-7.8); Neutrophils % 60.2 % (37.0-80.0); Platelet Count 408 K/mm3 (142-424); Red Blood Count 5.28 M/mm3 (4.20-5.40); Red Cell Distribution Width 12.7 % (11.5-17.5); White Blood Count 10.1 K/mm3 (4.8-10.8)
[2022-10-25 12:18] LABS: Alanine Aminotransferase 67 U/L (12-78); Albumin Level 4.5 g/dl (3.5-5.0); Albumin/Globulin Ratio 1.7 (1.1-1.8); Alkaline Phosphatase 74 U/L (38-126); Anion Gap 14.2 mEq/L (5-15); Aspartate Amino Transferase 59 U/L (14-36); Bilirubin,Total 0.2 mg/dl (0.2-1.3); Blood Urea Nitrogen 10 mg/dl (7-17); Calcium 9.2 mg/dl (8.4-10.2); Carbon Dioxide 27 mmol/L (22.0-30.0); Chloride 104 mmol/L (98-107); Estimated Glomerular Filt Rate 102 ml/min (>60); GFR (African American) 123 ML/MIN (>60); Globulin 2.6 g/dL (1.3-3.2); Glucose 89 mg/dl (74-100); Potassium 4.2 mmoL/L (3.5-5.1); Sodium 141 mmol/L (136-145); Total Protein,Serum 7.1 g/dl (6.3-8.2)
[2022-10-25 12:34] LABS: 25-OH Vitamin D, Total 33.6 ng/mL (30-100)
[2022-10-25 12:49] LABS: Thyroid Stimulating Hormone 2.02 uIU/mL (0.465-4.68)
[2022-10-25 13:08] LABS: Vitamin B12 952 pg/mL (239-931)
[2022-10-25 13:15] LABS: Ferritin 25.6 ng/ml (6.24-137)
== END ==
LOC: LAB 10:29
PROVIDERS: PCP Nurse Practitioner Family; Visit Provider Nurse Practitioner Family
DX: R53.83 Other fatigue (principal); E53.8 Deficiency of other specified B group vitamins; E66.3 Overweight; Z68.37 Body mass index [BMI] 37.0-37.9, adult
CPT/HCPCS: 36415; 80053; 82306; 82607; 82728; 84443; 85025

== ENCOUNTER 2023-10-11 12:58 | Outpatient (CLI) | payer OTHER, SELFPAY ==
[2023-10-11 13:25] LABS: Basophils % 0.4 % (0.1-2.0); Eosinophils # 0.4 K/mm3 (0.0-0.4); Eosinophils % 4.7 % (0.1-12.0); Hematocrit 44.2 % (37.0-47.0); Hemoglobin 14.3 g/dL (12.2-16.2); Lymphocytes # 2.6 K/mm3 (0.7-4.5); Lymphocytes % 30.8 % (10-50); Mean Corpuscular HGB Conc 32.4 g/dL (31.8-35.4); Mean Corpuscular Hemoglobin 27.8 pg (27.0-31.2); Mean Platelet Volume 6.8 fl (7.4-10.4); Monocytes # 0.3 K/mm3 (0.1-1.0); Monocytes % 3.9 % (1.7-9.3); Neutrophils % 60.2 % (37.0-80.0); Platelet Count 350 K/mm3 (142-424); Red Blood Count 5.14 M/mm3 (4.20-5.40); Red Cell Distribution Width 12.7 % (11.5-17.5); White Blood Count 8.3 K/mm3 (4.8-10.8)
[2023-10-11 13:53] LABS: Chloride 103 mmol/L (98-107); Potassium 4.3 mmoL/L (3.5-5.1); Sodium 140 mmol/L (136-145)
[2023-10-11 13:55] LABS: Blood Urea Nitrogen 15 mg/dl (7-17)
[2023-10-11 13:56] LABS: Alanine Aminotransferase 22 U/L (12-78); Albumin Level 4.3 g/dl (3.5-5.0); Albumin/Globulin Ratio 1.7 (1.1-1.8); Alkaline Phosphatase 67 U/L (38-126); Anion Gap 13.3 mEq/L (5-15); Aspartate Amino Transferase 25 U/L (14-36); Bilirubin,Total 0.4 mg/dl (0.2-1.3); Carbon Dioxide 28 mmol/L (22.0-30.0); Estimated Glomerular Filt Rate 87 ml/min (>60); GFR (African American) 105 ML/MIN (>60); Globulin 2.6 g/dL (1.3-3.2); Total Protein,Serum 6.9 g/dl (6.3-8.2)
[2023-10-11 13:57] LABS: Calcium 8.7 mg/dl (8.4-10.2); Glucose 92 mg/dl (74-100)
[2023-10-11 14:24] LABS: Hemoglobin A1C 5.2 % (4.0-6.0)
[2023-10-11 14:29] LABS: Thyroid Stimulating Hormone 0.77 uIU/mL (0.465-4.68)
[2023-10-11 14:33] LABS: Ferritin 30.2 ng/ml (6.24-137)
[2023-10-11 14:48] LABS: Vitamin B12 574 pg/mL (239-931)
[2023-10-12 08:15] LABS: Triiodothyronine (T3) Free 3.1 pg/mL (2.0-4.4)
[2023-10-14 09:45] LABS: Triiodothyronine (T3) Reverse 14.8
== END 2023-10-11 23:59 ==
PROVIDERS: PCP Nurse Practitioner Family; Visit Provider Nurse Practitioner Family
DX: E28.2 Polycystic ovarian syndrome (principal); R63.5 Abnormal weight gain; D50.9 Iron deficiency anemia, unspecified; R00.2 Palpitations; R79.89 Other specified abnormal findings of blood chemistry; R39.9 Unspecified symptoms and signs involving the genitourinary system; B96.89 Other specified bacterial agents as the cause of diseases classified elsewhere
CPT/HCPCS: 80053; 82607; 82728; 83036; 84443; 84481; 84482; 85025; 87086

== ENCOUNTER 2023-11-23 13:04 | Outpatient (CLI) | payer OTHER, SELFPAY ==
--- NOTE | 2023-11-23 13:04 | US_ITS ---
FINAL REPORT CLINICAL HISTORY: right posterior cervical lymphadenopathy FINDINGS: Limited sonographic images of the right posterior neck were obtained. The palpable abnormality corresponds to a 1.5 cm benign-appearing lymph node. No mass or fluid collection is identified. IMPRESSION: Benign-appearing lymph node, favor reactive. Reviewed, Interpreted and Dictated by Sara Dumont MD Transcribed by Bri Taylor Authenticated and [facility]
== END 2023-11-23 23:59 ==
LOC: RAD 13:04
PROVIDERS: PCP Nurse Practitioner Family; Visit Provider Nurse Practitioner Family
DX: R59.0 Localized enlarged lymph nodes (principal)
CPT/HCPCS: 76536

== ENCOUNTER 2023-11-28 15:05 | Outpatient (CLI) | payer OTHER, SELFPAY ==
--- NOTE | 2023-11-28 15:07 | XR_ITS ---
FINAL REPORT CLINICAL HISTORY: cough COMPARISON: None FINDINGS: Two views of the chest were obtained. The heart size and pulmonary vascularity are within normal limits. The mediastinum is normal. No acute pulmonary abnormality is identified. There is no pneumothorax. The bony thorax is intact. IMPRESSION: No active cardiopulmonary disease. Reviewed, Interpreted and Dictated by David Mccray III, MD Transcribed by Rosibel Sarah Authenticated and [facility]
== END 2023-11-28 23:59 ==
LOC: RAD 15:05
PROVIDERS: PCP Nurse Practitioner Family; Visit Provider Nurse Practitioner Family
DX: J68.0 Bronchitis and pneumonitis due to chemicals, gases, fumes and vapors (principal); R30.0 Dysuria; B96.89 Other specified bacterial agents as the cause of diseases classified elsewhere
CPT/HCPCS: 71046; 87086

== ENCOUNTER 2023-12-22 11:45 | Outpatient (CLI) | payer OTHER, SELFPAY ==
[2023-12-22 13:53] LABS: HCG,Quantitative < 2 mIU/ml (0-5.42)
== END 2023-12-22 23:59 ==
LOC: LAB 11:46
PROVIDERS: PCP Nurse Practitioner Family; Visit Provider Nurse Practitioner Family
DX: Z32.00 Encounter for pregnancy test, result unknown (principal)
CPT/HCPCS: 36415; 84702

== ENCOUNTER 2024-02-06 11:20 | Outpatient (CLI) | payer OTHER, SELFPAY ==
--- NOTE | 2024-02-06 11:32 | XR_ITS ---
FINAL REPORT CLINICAL HISTORY: cervicalgia COMPARISON: None FINDINGS: CERVICAL SPINE 5 views were obtained. There is no acute fracture or malalignment. There is mild kyphosis centered at C4-5. No significant degenerative changes are present. IMPRESSION: Mild kyphosis without acute process. Reviewed, Interpreted and Dictated by David Mccray III, MD Transcribed by Grace Wells Authenticated and [facility]
--- NOTE | 2024-02-06 11:32 | XR_ITS ---
FINAL REPORT CLINICAL HISTORY: thoracic back pain COMPARISON: None FINDINGS: Three views of the thoracic spine were obtained. There is no fracture present. There is no malalignment. There are no significant degenerative changes. IMPRESSION: No acute process. Reviewed, Interpreted and Dictated by David Mccray III, MD Transcribed by Grace Wells Authenticated and [facility]
== END 2024-02-06 23:59 | disposition home or self-care (01) ==
LOC: RAD 11:21
PROVIDERS: PCP Nurse Practitioner Family; Visit Provider Nurse Practitioner Family
DX: M54.2 Cervicalgia (principal); M54.6 Pain in thoracic spine
CPT/HCPCS: 72050; 72072

== ENCOUNTER 2024-03-05 14:48 | Outpatient (CLI) | payer OTHER, SELFPAY ==
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
--- NOTE | 2024-03-05 15:03 | MR_ITS ---
FINAL REPORT CLINICAL HISTORY: thoracic back pain FINDINGS: Multiplanar MR imaging of the thoracic spine was performed without contrast. On the sagittal T2-weighted images, disc degeneration and endplate changes are seen at multiple levels. There is no evidence of fracture. The vertebral alignment is normal. The thoracic spinal cord has an unremarkable appearance without evidence of mass, edema or syrinx. There is no evidence of significant canal stenosis or cord compression. On the axial images, mild disc bulges and small osteophytes are seen at multiple levels. There is a small central disc protrusion at T6-7. Small right paracentral disc protrusion is seen at T7-8. There is no evidence of significant canal stenosis or cord compression. No paraspinous soft tissue abnormality is identified. IMPRESSION: Multilevel mild degenerative disc disease and spondylosis. Disc protrusions at T6-7 and T7-8. Reviewed, Interpreted and Dictated by David Mccray III, MD Transcribed by Elvia Henley Authenticated and [facility]
== END 2024-03-05 23:59 | disposition home or self-care (01) ==
LOC: RAD 14:48
PROVIDERS: PCP Nurse Practitioner Family; Visit Provider Nurse Practitioner Family
DX: M54.2 Cervicalgia (principal); M54.6 Pain in thoracic spine
CPT/HCPCS: 72141; 72146

== ENCOUNTER 2024-03-27 11:00 | Outpatient (RCR) | payer OTHER, SELFPAY ==
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
== END 2024-03-27 12:00 | disposition home or self-care (01) ==
LOC: PT 11:00
PROVIDERS: Visit Provider Nurse Practitioner Family
DX: M54.6 Pain in thoracic spine (principal); M54.2 Cervicalgia
CPT/HCPCS: 97010; 97014; 97110; 97163; G0283

== ENCOUNTER 2024-08-31 09:53 | Outpatient (CLI) | payer OTHER, SELFPAY ==
[2024-08-31 13:59] LABS: Alanine Aminotransferase 18 U/L (12-78); Albumin Level 4.3 g/dl (3.5-5.0); Albumin/Globulin Ratio 1.7 (1.1-1.8); Alkaline Phosphatase 65 U/L (38-126); Anion Gap 13.2 mEq/L (5-15); Aspartate Amino Transferase 28 U/L (14-36); Bilirubin,Total 0.6 mg/dl (0.2-1.3); Blood Urea Nitrogen 15 mg/dl (7-17); Calcium 9.4 mg/dl (8.4-10.2); Carbon Dioxide 27 mmol/L (22.0-30.0); Chloride 104 mmol/L (98-107); Chol/HDL Ratio 4.2 (1-3.5); Cholesterol 168 mg/dl (140-200); Estimated Glomerular Filt Rate 76 ml/min (>60); GFR (African American) 92 ML/MIN (>60); Globulin 2.6 g/dL (1.3-3.2); Glucose 74 mg/dl (74-100); HDL Cholesterol 40 mg/dl (40-60); Magnesium 1.8 mg/dl (1.6-2.3); Potassium 4.2 mmoL/L (3.5-5.1); Sodium 140 mmol/L (136-145); Total Protein,Serum 6.9 g/dl (6.3-8.2); Triglycerides 124 mg/dl (30-150); Uric Acid 5.4 mg/dl (2.5-6.2); VLDL Cholesterol 25 mg/dL (0-40)
[2024-08-31 14:10] LABS: Direct LDL Cholesterol 118.57 mg/dL (100-129)
[2024-08-31 14:15] LABS: 25-OH Vitamin D, Total 39.4 ng/mL (30-100)
[2024-08-31 14:31] LABS: Thyroid Stimulating Hormone 1.56 uIU/mL (0.465-4.68)
[2024-08-31 15:06] LABS: Vitamin B12 315 pg/mL (239-931)
[2024-08-31 15:07] LABS: Erythrocyte Sedimentation Rate 16 mm/hr (0-20)
[2024-08-31 15:08] LABS: Basophils # 0.1 K/mm3 (0-0.2); Basophils % 0.8 % (0.1-2.0); Eosinophils # 0.4 K/mm3 (0.0-0.4); Eosinophils % 4.2 % (0.1-12.0); Hematocrit 42.1 % (37.0-47.0); Hemoglobin 14.4 g/dL (12.2-16.2); Lymphocytes # 2.3 K/mm3 (0.7-4.5); Lymphocytes % 24.7 % (10-50); Mean Corpuscular HGB Conc 34.3 g/dL (31.8-35.4); Mean Corpuscular Hemoglobin 29.3 pg (27.0-31.2); Mean Corpuscular Volume 85.4 fl (81-99); Mean Platelet Volume 8.3 fl (7.4-10.4); Monocytes # 0.4 K/mm3 (0.1-1.0); Neutrophils # 6.2 K/mm3 (1.8-7.8); Neutrophils % 66.3 % (37.0-80.0); Platelet Count 320 K/mm3 (142-424); Red Blood Count 4.93 M/mm3 (4.20-5.40); Red Cell Distribution Width 12.8 % (11.5-17.5); White Blood Count 9.4 K/mm3 (4.8-10.8)
[2024-08-31 15:16] LABS: Ferritin 20.7 ng/ml (6.24-137)
[2024-09-01 09:20] LABS: RA Latex Turbid. <10.0 IU/mL (<14.0)
[2024-09-04 13:05] LABS: Antinuclear Antibodies, IFA Negative (.)
== END 2024-08-31 23:59 | disposition home or self-care (01) ==
LOC: LAB.DROPOF 09-02 09:22
PROVIDERS: PCP Nurse Practitioner Family; Visit Provider Nurse Practitioner Family
DX: R79.89 Other specified abnormal findings of blood chemistry (principal); D50.9 Iron deficiency anemia, unspecified; M25.50 Pain in unspecified joint; R51.9 Headache, unspecified; R63.5 Abnormal weight gain; Z13.220 Encounter for screening for lipoid disorders
CPT/HCPCS: 80050; 80053; 80061; 82306; 82607; 82728; 83735; 84443; 84550; 85025; 85651; 86038; 86431

== ENCOUNTER 2025-04-16 13:47 | Outpatient (CLI) | payer OTHER, SELFPAY ==
--- NOTE | 2025-04-16 13:49 | XR_ITS ---
FINAL REPORT CLINICAL HISTORY: Chronic lower back pain COMPARISON: None FINDINGS: Three views of the lumbosacral spine were obtained. No fracture is identified. There is mild degenerative disc space narrowing with endplate spurring at L5-S1. Remaining disc heights are normal. Alignment is normal. IMPRESSION: Mild degenerative disc disease in the lumbosacral junction. Reviewed, Interpreted and Dictated by Edward Alfonso MD Transcribed by Grace Wells Authenticated and [facility]
--- OUTSIDE RECORDS SUMMARY | 2025-04-16 13:50 | XMS_ITS | Referral Summary ---
Author Organization [email or web address] ([place], [place], [place], [place]) Address [address] [place] [address] Care Team Providers Care J2Ee Java Developer Name Role Phone Mini Jaramillo APRN Primary Care Provider Allergies Active Allergy Reactions Criticality Noted Date Comments Metronidazole 09/20/2024 Penicillin Rash Low 01/18/2024 Sulfa (Sulfonamide Antibiotics) Rash Low 12/26 Medications albuterol HFA (VENTOLIN HFA) 90 mcg/actuation inhaler Inhale 2 puffs by mouth every 6 (six) hours as needed for wheezing or shortness of breath. Active cetirizine (ZyrTEC) 10 MG tablet Take 1 tablet (10 mg total) by mouth daily. Active hydrOXYzine (ATARAX) 25 MG tablet Take 1 tablet (25 mg total) by mouth nightly. Active ipratropium-alb uteroL (DUO-NEB) 0.5 mg-3 mg(2.5 mg base)/3 mL nebulizer solution Inhale 3 mLs by nebulization every 6 (six) hours as needed. Active metoprolol succinate (TOPROL-XL) 25 MG 24 hr tablet Take 1 tablet (25 mg total) by mouth daily. Active pregabalin (LYRICA) 50 MG capsule Take 1-2 capsules (50-100 mg total) by mouth once at bedtime. Active busPIRone (BUSPAR) 15 MG tablet Take 1 tablet (15 mg total) by mouth 3 (three) times daily. Active desvenlafaxine (Pristiq) 25 mg Tb24 Take 1 tablet (25 mg total) by mouth daily. Active dupilumab 300 mg/2 mL pnijIndications :EOE Inject 300 mg under the skin every 14 (fourteen) days. Active polysaccharide iron complex 180 mg iron cap Take 1 capsule by mouth 2 (two) times daily. Active methocarbamoL (ROBAXIN) 750 MG tablet Take 1 tablet (750 mg total) by mouth 3 (three) times daily as needed for muscle spasms. Active plecanatide (Trulance) 3 mg tab Take 3 mg by mouth as needed. Active meloxicam (MOBIC) 15 MG tablet Take 1 tablet (15 mg total) by mouth daily. Active metFORMIN (GLUCOPHAGE-XR) 500 MG 24 hr tablet Take 3 tablets (1,500 mg total) by mouth daily with dinner. Active pantoprazole (PROTONIX) 40 MG tablet Take 1 tablet (40 mg total) by mouth daily. Active Active Problems Problem Noted Date Diagnosed Date Black spider bite 09/20/2024 Intractable pain 09/20/2024 Intractable muscle spasm 09/20/2024 Eosinophilic esophagitis 01/19/2024 Tachycardia PCOS (polycystic ovarian syndrome) GERD (gastroesophageal reflux disease) Asthma Obesity Immunizations Name Administration Dates Next Due Tdap 09/20/2024 Social History Tobacco Use Types Packs/Day Years Used Date Smoking Tobacco: Never Smokeless Tobacco: Never Tobacco Cessation:Counseling Given: Not Answered Alcohol Use Standard Drinks/Week Comments Yes 0 (1 standard drink = 0.6 oz pur e alcohol) occassionally Utilities Answer Date Recorded In the past 12 months, has t he [employer], gas, oil, or water [employer] threatened to shut off services in your home? No 09/20/2024 Interpersonal Safety Answer Date Record ed How often does anyone, [employer] family and friends, physically hurt you? Never 09/20/2024 How often does anyone, [employer] family and friends, insult or talk down to you? Never 09/20/2024 How often does anyone, [employer] family and friends, threaten you with harm? Never 09/20/2024 How often does anyone, [employer] family and friends, scream or curse at you? Never 09/20/2024 Housing Stability Answer Date Recorded What is your living situation today? I have a [place] place to live 09/20/2024 Living situation problems Not on file 2023 Food Insecurity Answer Date Recorded Within the past 12 months, y ou worried that your food would run out before you got money to buy more. Never true 09/20/2024 Within the past 12 months, t he food you bought just didn't last and you didn't have money to get more. Never true 09/20/2024 Transportation Needs Answer Date Record ed In the past 12 months, has l ack of reliable transportation kept you from medical appointments, meetings, work or from getting things needed for daily living? No 09/20/2024 Financial Resource Strain Answer Date R ecorded How hard is it for you to pa y for the very basics like food, housing, medical care, and heating? Would you say it is: Not hard at all 09/20/2024 Employment Answer Date Recorded Do you want help finding or keeping work or a job? I do not need or want help 09/20/2024 Family and Community Support Answer Vinny e Recorded If for any reason you need h elp with day-to-day activities such as bathing, preparing meals, shopping, managing finances, etc., do you get the help you need? I don't need any help 09/20/2024 Feeling Lonely or Isolated 0 09/20 Educational Attainment Answer Date Walt rded Do you speak a language other than [place] at [facility]? No 09/20/2024 Do you want help with school or training? For example, starting or completing job training or getting a high school diploma, GED or equivalent. No 09/20/2024 Physical Activity Answer Date Recorded Number of minutes of exercise per week 0 09/20/2024 Self Management Answer Date Recorded Because of a physical, menta l, or emotional condition, do you have serious difficulty concentrating, remembering, or making decisions? (5 years or older) No 09/20/2024 Because of a physical, menta l, or emotional condition, do you have difficulty doing errands alone such as visiting a doctor's office or shopping? (15 years or older) No 09/20/2024 Substance Use Answer Date Recorded How many times in the past y ear have you used prescription drugs for non-medical reasons? Never 09/20/2024 How many times in the past year have you used [place] legal drugs? Never 09/20/2024 Mental Health Answer Date Recorded Calculation of above two rows 0 Comments No Sex and Gender Information Value Date Recorded Sex Assigned at Not on file Legal Sex Female 5:23 PM CDT Gender Identity Not on file Sexual Orientation Not on file Last Filed Vital Signs Vital Sign Reading Time Taken Comments Blood Pressure 117/84 01/08/2025 2:57 PM EDT Pulse 66 01/08/2025 2:57 PM EDT Temperature 36.8 C (98.2 F) 09/22/2024 6:00 AM EST Respiratory Rate 16 09/22/2024 12:10 AM EST Oxygen Saturation 96% 01/08/2025 2:57 PM EDT Inhaled Oxygen Concentration - - Weight 113.4 kg (250 lb) 01/16/2025 11:00 AM EDT Height 177.8 cm (5' 10 ) 01/16/2025 11:00 AM EDT Body Mass Index 35.87 01/16/2025 11:00 AM EDT Plan of Treatment Not on file Insurance [employer] Advance Directives For more information, please contact: [phone] * Full Code (Latest Code Status on File) Date Activated Date Inactivated Comments 09/20/2024 4:53 PM 09/22/2024 4:37 PM Care Teams J2Ee Java Developer Relationship Specialty Start Date End Date JaramilloJaniee, DEVELOPMENT ANALYST [address] [place] [address] PCP - General Nurse Practitioner 01/19/24
--- OUTSIDE RECORDS SUMMARY | 2025-04-16 13:50 | XMS_ITS | Data Portability ---
Author Organization Pending sale to [facility] Address [address] [place] [address] Assessment No assessment recorded. Plan of Treatment Reminders Order Date Submit Date Provider Last Modified By Organization Details Last Modified Time Details Appointments None recorded. Lab rapid strep group A, throat 2022 023 [facility], [address] [place] [address], [id number], 3 12:15:12 rapid flu (A+B) 2022 023 [facility], [address] [place] [address], [id number], 3 12:15:12 rapid SARS CoV + SARS CoV 2 Ag, QL IA, respiratory specimen 2022 023 [facility], [address] [place] [address], [id number], 3 12:15:12 urinalysis, dipstick 2022 023 [facility], [address] [place] [address], [id number], 3 16:09:46 test, urine 2022 023 [facility], [address] [place] [address], [id number], 16:09:47 culture, urine 2022 023 [place] [facility], [address], Hiren Newsome, [place], [address], 07:06:42 Referral None recorded. Procedures None recorded. Surgeries None recorded. Imaging None recorded. Medication Orders Zithromax Z-Kavon 250 mg tablet 2022 023 [facility][id number], [address], [id number], 3 12:15:19 fluticasone propionate 50 mcg/actuati on nasal spray,suspe nsion 2022 023 [facility] #[id number], [address], [id number], 3 12:15:20 dexamethaso ne sodium phosphate 4 mg/mL injection solution 2022 023 [facility] [employer] [id number], [address], [id number], 3 13:13:36 cephalexin 500 mg capsule 2022 023 [facility] [employer] [id number], [address], [id number], 3 11:41:33 Patient TargetsNo targets recorded. Patient Instructions Encounter Date Encounter Id Patient Instructions Last Modified By Organization Details Last Modified Time 02/18/2023 [id number] learning about healthy weight efryman Not available 02/18/2023 16:09:46 body mass index: care instructions efryman Not available 02/18/2023 16:09:47 Reason for Referral None Reported. Results Created Date Observation Date Name Description Value Unit Range Abnormal Flag Note LastModifiedBy Organization Detail LastModifiedTime 02/19/20 23 02/20/2023 URINE CULTU RE, ROUTI NE urine culture, routine Final report Not Available [facility] ([facility]) [address] [facility], [place], [address], 02/20/2023 07:06:42 02/19/20 23 02/20/2023 URINE CULTU RE, ROUTI NE result 1 COMMEN T Mixed uroge nital evelio 10,00 0-25, 000 colon y formi ng units per mL Not Available [facility] ([facility]) [address] [facility], [place], [address], 02/20/2023 07:06:42 02/19/20 23 02/18/2023 pregn sebastian test, urine HCG negati ve Not Available [address], [address], 02/18/2023 16:00:16 02/19/20 23 02/18/2023 urina lysis , dipst ick Leukocytes Negati ve Not Available [address], [address], 02/18/2023 15:48:13 02/19/20 23 02/18/2023 urina lysis , dipst ick Nitrite negati ve Not Available [address], [address], 02/18/2023 15:48:13 02/19/20 23 02/18/2023 urina lysis , dipst ick Urobilinogen .2 Not Available [facility]imitry [address], [address], 02/18/2023 15:48:13 02/19/20 23 02/18/2023 urina lysis , dipst ick Protein Negati ve Not Available [address], [address], 02/18/2023 15:48:13 02/19/20 23 02/18/2023 urina lysis , dipst ick pH 7.0 Not Available [address], [address], 02/18/2023 15:48:13 02/19/20 23 02/18/2023 urina lysis , dipst ick Blood Negati ve Not Available [address], [address], 02/18/2023 15:48:13 02/19/20 23 02/18/2023 urina lysis , dipst ick Specific [place] 1.015 Not Available [address], [address], 02/18/2023 15:48:13 02/19/20 23 02/18/2023 urina lysis , dipst ick Ketone Negati ve Not Available [address], [address], 02/18/2023 15:48:13 02/19/20 23 02/18/2023 urina lysis , dipst ick Bilirubin Negati ve Not Available [address], [address], 02/18/2023 15:48:13 02/19/20 23 02/18/2023 urina lysis , dipst ick Glucose Negati ve Not Available [address], [address], 02/18/2023 15:48:13 02/19/20 23 02/18/2023 urina lysis , dipst ick Appearance Clear Not Available [address], [address], 02/18/2023 15:48:13 02/19/20 23 02/18/2023 urina lysis , dipst ick Color Yellow Not Available [address], [address], 02/18/2023 15:48:13 06/20/20 23 06/20/2023 rapid SARS CoV + SARS CoV 2 Ag, QL IA, respi rator y speci men SARS CoV antigen Invali d Not Available [address], [address], 06/20/2023 11:42:55 06/20/20 23 06/20/2023 rapid flu (A+B) Flu negati ve Not Available [address], [address], 06/20/2023 11:42:49 06/20/20 23 06/20/2023 rapid flu (A+B) Type Both A & B Not Available [address], [address], 06/20/2023 11:42:49 06/20/20 23 06/20/2023 rapid strep group A, throa t Strep negati ve Not Available [address], [address], 06/20/2023 11:40:38 06/20/20 23 06/20/2023 rapid strep group A, throa t Culture No Not Available [address], [address], 06/20/2023 11:40:38 Result Notes None recorded. Problems Name Problem SNOMED Code Status Onset Date Resolution Date Notes Provider Name and Address Organization Details Recorded Time Anxiety 48317618 Active JACLYN Moss - [facility] 15:42:51 Depressive disorder 49676303 Active Yesenia Swann null, - [facility] 15:43:01 Asthma 548801361 Active Yesenia Swann null, - [facility] 15:43:10 Seasonal allergic rhinitis 439161891 Active Yesenia Swann null, - [facility] 15:43:21 Polycystic ovary syndrome 664354177 Active Yesenia Swann null, JACLYN - [facility] 15:43:30 Chronic interstitial cystitis 971764769 Active Yesenia Swann null, - [facility] 15:43:48 Irritable bowel syndrome 81408234 Active Yesenia Swann null, [place] - [facility] 15:44:17 Tachycardia 6817860 Active Yesenia Swann null, - [facility] 15:46:57 Obesity 216420220 Active Yesenia Swann null, [place] - [facility] 16:05:53 Problem Notes None recorded. Procedures Surgical History Date Name Laterality Status Provider Name and Address Organization Details Recorded Time 09/26/19 13 Date of Last Pap Smear completed Yesenia wSann [place] - [facility] 09/07/2023 10:22:11 Ear Tubes - Tympanostomy Tubes completed Yesenia Swann [facility] 02/18/2023 15:38:11 cholecystectomy completed Yesenia Swann [facility] 02/18/2023 15:45:57 procedure on urinary bladder completed Yesenia Swann [place] - [facility] 02/18/2023 15:46:13 Diagnostic Laparoscopy completed Yesenia Swann [facility] 02/18/2023 15:46:31 Imaging Results None recorded. Procedure Notes None recorded. Medical Equipment None Reported. Allergies Allergen ID Allergen Name Allergen Category Reaction Reaction Severity Criticality Documentation Date Start Date Code Code System Note Provider Name and Address Organization Details Recorded Time 002492 Product containin g penicilli n (product) medicatio n rash Not available high 02/18/2023 87121 8001 SNOMED Yesenia gilliland, JACLYN - [facility] 15:38:38 852474 Substance with sulfonami de structure and antibacte rial mechanism of action (substanc e) medicatio n rash Not available high 02/18/2023 22274 8003 SNOMED Yesenia Swann null, [place] - [facility] 3 15:38:52 Medications Name Sig Start Date Stop Date Status Note LastModified by Organization Details LastModified Time cyclobenzap rine 10 mg tablet TAKE 1 TABLET BY MOUTH THREE TIMES DAILY NEEDED 02/18 completed Not Available Not Available Not Available fluconazole 100 mg tablet TAKE 1 TABLET BY MOUTH EVERY DAY active Not Available Not Available No t Available cetirizine 10 mg tablet Take 1 tablet every day by oral route for 30 days. active Not Available Not Available No t Available azithromyci n 250 mg tablet TAKE 2 TABLETS (500 MG) BY ORAL ROUTE ONCE DAILY FOR 1 DAY THEN 1 TABLET (250 MG) BY ORAL ROUTE ONCE DAILY FOR 4 DAYS active Not Available Not Available No t Available fluconazole 150 mg tablet 02/18 completed Not Available Not Available Not Available fluconazole 200 mg tablet TAKE 1 TABLET BY MOUTH NOW 06/20 completed Not Available Not Available Not Available ondansetron HCl 4 mg tablet 06/20 completed Not Available Not Available Not Available prednisone 20 mg tablet 02/18 completed Not Available Not Available Not Available sumatriptan 50 mg tablet 02/18 completed Not Available Not Available Not Available topiramate 25 mg tablet 02/18 completed Not Available Not Available Not Available methocarbam ol 750 mg tablet 02/18 completed Not Available Not Available Not Available cephalexin 500 mg capsule TAKE 1 CAPSULE BY MOUTH TWICE DAILY FOR 7 DAYS 06/20 completed Not Available Not Available Not Available oseltamivir 75 mg capsule 02/18 completed Not Available Not Available Not Available fluoxetine 10 mg capsule TAKE 1 CAPSULE BY MOUTH EVERY DAY active Not Available Not Available No t Available buspirone 7.5 mg tablet 02/18 completed Not Available Not Available Not Available montelukast 10 mg tablet TAKE 1 TABLET BY MOUTH EVERY DAY active Not Available Not Available No t Available hydroxyzine HCl 25 mg tablet TAKE 1 TABLET BY MOUTH EVERY NIGHT AT BEDTIME NEEDED FOR ITCHING active Not Available Not Available No t Available mupirocin 2 % topical ointment 02/18 completed Not Available Not Available Not Available metoprolol succinate ER 25 mg tablet,exte nded release 24 hr Take 1 tablet every day by oral route for 30 days. active Not Available Not Available No t Available dexamethaso ne sodium phosphate 4 mg/mL injection solution Inject 4 mg every day by intramusc ular route. 2022 active Not Available Not Available Not Avai lable levofloxaci n 500 mg tablet 02/18 completed Not Available Not Available Not Available scopolamine 1 mg over 3 days transdermal patch APPLY 1 PATCH BEHIND THE EAR EVERY 72 HOURS NEEDED 06/20 completed Not Available Not Available Not Available methylpredn isolone 4 mg tablets in a dose pack 02/18 completed Not Available Not Available Not Available albuterol sulfate HFA 90 mcg/actuati on aerosol inhaler 02/18 completed Not Available Not Available Not Available bromphenira mine-pseudo ephedrine-D M 2 mg-30 mg-10 mg/5 mL oral syrup 02/18 completed Not Available Not Available Not Available ondansetron 4 mg disintegrat ing tablet 02/18 completed Not Available Not Available Not Available cefdinir 300 mg capsule 02/18 completed Not Available Not Available Not Available fluoxetine 20 mg capsule TAKE 1 CAPSULE BY MOUTH EVERY DAY active Not Available Not Available No t Available fluticasone propionate 50 mcg/actuati on nasal spray,suspe nsion SHAKE LIQUID AND USE 1 SPRAY IN EACH NOSTRIL EVERY DAY active Not Available Not Available No t Available metformin ER 500 mg tablet,exte nded release 24 hr TAKE 3 TABLETS BY MOUTH EVERY DAY AT DINNER active Not Available Not Available No t Available buspirone 15 mg tablet Take 1 tablet every day by oral route for 90 days. active Not Available Not Available No t Available Lo Loestrin Fe 1 mg-10 mcg (24)/10 mcg (2) tablet 02/18 completed Not Available Not Available Not Available Trelegy Ellipta 200 mcg-62.5 mcg-25 mcg powder for inhalation 02/18 completed Not Available Not Available Not Available Merzee 1 mg-20 mcg (24)/75 mg (4) capsule 02/18 completed Not Available Not Available Not Available Vitals Date Recorded Body height Body mass index (BMI) Body weight Body temperature Heart rate Oxygen saturation Oxygen saturation in Arterial blood by Pulse oximetry Respiratory rate Systolic And Diastolic Provider Name and Address Organization Details Last Updated DateTime 3 177.8 cm 34.8 kg/m2 830128. 15 g 97 [degF] 79 /min 97 % 97 % 18 /min 110/60 mm[Hg] Yesenia Hue [place] - [facility] 3 15:37:22 Date Recorded Body height Body mass index (BMI) Body weight Heart rate Oxygen saturation Oxygen saturation in Arterial blood by Pulse oximetry Body temperature Respiratory rate Systolic And Diastolic Provider Name and Address Organization Details Last Updated DateTime 3 177.8 cm 35.3 kg/m2 634620. 72 g 92 /min 95 % 95 % 98 [degF] 18 /min 118/72 mm[Hg] Sigrid Óscar [place] - [facility] 3 11:46:21 Social History Question Answer Notes LastModified by Organizat ion Details LastModified Time Tobacco Smoking Status Never Smoker Yesenia Swann [facility] [place] - [facility] 02/18/2023 15:38:05 Do You Have An Advance Directive? No Information n ot available 02/18/2023 How Many Years Have You Consumed Alcohol? 4 Information not available 02/18/2023 Are You Blind Or Do You Have Difficulty Seeing? No Information n ot available 02/18/2023 Is Blood Transfusion Acceptable In An Emergency? Yes Information not available 02/18/2023 What Is Your Level Of Caffeine Consumption? Moderate Information not available 02/18/2023 How Much Tobacco Do You Chew? None Information not available 02/18/2023 In The 14 Days Before Symptom Onset, Have You Had Close Contact With A Laboratory-confirm ed COVID-19 While That Case Was Ill? No Information n ot available 02/18/2023 In The 14 Days Before Symptom Onset, Have You Had Close Contact With A Person Who Is Under Investigation For COVID-19 While That Person Was Ill? No Information not available 02/18/2023 Have You Been To An Area Known To Be High Risk For COVID-19? No Information not available 02/18/2023 Are You Deaf Or Do You Have Serious Difficulty Hearing? No Information not available 02/18/2023 What Type Of Diet Are You Following? REGULAR Information n ot available 02/18/2023 Which Illicit Or Recreational Drugs Have You Used? None Information not available 02/18/2023 Have You Processed Blood Or Body Fluids From An Ebola Virus Disease Patient Without Appropriate PPE? No Information not available 02/18/2023 Do You Reside In Or Have You Traveled To An Area Where Ebola Virus Transmission Is Active? No Information not available 02/18/2023 What Is The Highest Grade Or Level Of School You Have Completed Or The Highest Degree You Have Received? [id number] Information not available 02/18/2023 Have There Been Any Changes To Your Family Or Social Situation? No Information no t available 02/18/2023 Have You Recently Or Are You Planning To Travel To An Area With Zika Virus? No Information not available 02/18/2023 How Many Years Have You Used Illicit Or Recreational Drugs? 0 Information not available 02/18/2023 What Was The Date Of Your Most Recent Tobacco Screening? 02/18/2023 Information not available 02/18/2023 How Many Children Do You Have? 0 Information not available 02/18/2023 Do You Use Protection Against STDs? Usually Information not available 02/18/2023 What Is Your Relationship Status? Information not available 02/18/2023 Do You Use Your Seat Belt Or Car Seat Routinely? Yes Information not available 02/18/2023 Are You Sexually Active? Yes Information not available 02/18/2023 Do You Have Smoke And Carbon Monoxide Detectors In Your Home? Yes Information not available 02/18/2023 Are You Passively Exposed To Smoke? No Information no t available 02/18/2023 Do You Use Sunscreen Routinely? Yes Information not available 02/18/2023 Has Tobacco Cessation Counseling Been Provided? No Information not available 02/18/2023 Do You Have Difficulty Walking Or Climbing Stairs? No Information not available 02/18/2023 Which Type Of Protection Is Used? Condom Information not available 02/18/2023 Sex: Female Functional Status Question Answer Note LastModified by Organizat ion Details LastModified Time Do you use any illicit or recreational drugs? No Information not available 02/18/2023 What is your level of alcohol consumption? Occasional Information not available 02/18/2023 Do you or have you ever used smokeless tobacco? Never used smokeless tobacco Information not available 02/18/2023 Are you currently employed? Yes Information not available 02/18/2023 Do you have transportation difficulties? No Information not available 02/18/2023 Are you able to walk? YESWOREST Information not available 02/18/2023 Do you have difficulty doing errands alone? No Information not available 02/18/2023 Are you able to care for yourself? Yes Information n ot available 02/18/2023 What is your occupation? RN Information not available 02/18/2023 Do you have difficulty dressing or bathing? No Information not available 02/18/2023 Do you or have you ever used e-cigarettes or vape? Never used electronic cigarettes Information not available 02/18/2023 What is your exercise level? Occasional Information not available 02/18/2023 Mental Status Question Answer Note LastModified by Organizat ion Details LastModified Time Do you feel stressed (tense, restless, nervous, or anxious, or unable to sleep at night)? [id number] Information not available 02/18/2023 Do you have difficulty concentrating, remembering or making decisions? No Information no t available 02/18/2023 Family History Relationship Description Onset Age of this Age Resolved Age Notes LastModified by Organization Details LastModified Time Mother Hypercholest erolemia cbuckler Not available 2022 15:37:44 Mother Asthma cbuckler Not available 0 02/18/2023 15:37:45 Mother Disease of liver cbuckler Not available 2022 15:37:45 Mother Depressive disorder cbuckler Not available 2022 15:37:45 Mother Arthritis cbuckler Not availabl e 02/18/2023 15:37:45 Mother Hypertensive disorder cbuckler Not available 2022 15:37:45 Mother Obesity cbuckler Not available 02/18/2023 15:37:45 Maternal Grandfather Harmful pattern of use of alcohol cbuckler Not available 2022 15:37:45 Paternal Grandfather Malignant neoplasm of lung cbuckler Not available 2022 15:37:45 Paternal Grandfather Heart disease cbuckler Not available 2022 15:37:45 Paternal Grandfather Diabetes mellitus cbuckler Not available 2022 15:37:45 Medical History Condition Response Allergies/Hayfever Y Kidney or Bladder Problems Y Lung Disease Y Depression Y Skin Problems Y Breast Problem Y Anemia Y Constipation Y Ovarian Cyst Y Anxiety Disorder Y Obesity Y Vision or Eye Problems Y Acid Reflux (GERD) Y Headaches Y Irritable Bowel Syndrome Y Gynecological History Statement/Question Response Abnormal Pap N Flow Moderate Date of LMP 04/28/2022 Post Menopausal Bleeding N STIs/STDs N HPV Vaccine N Duration of Flow (days) 5 Current Control Method Condoms Age at Menarche 14 Sexually Active? Y Menses Monthly N Date of Last Pap Smear 09/26/2012 Sexual Problems? N LMP Approximate Hormone Replacement Therapy N Obstetrics History GPAL:G 0 P 0 0 0 0 Immunizations Vaccine Type Date Status Note Provider Nam e and Address Organization Details Recorded Time MMR 10/01/2003 completed Sigrid Stears null, [place] - [facility] 06/20/2023 11:41:16 COVID-19, mRNA, LNP-S, PF, 100 mcg/0.5mL dose or 50 mcg/0.25mL dose 10/02/2020 completed Sigrid Stears null, [place] - [facility] 06/20/2023 11:41:16 COVID-19, mRNA, LNP-S, PF, 100 mcg/0.5mL dose or 50 mcg/0.25mL dose 11/03/2020 completed Sigrid Stears null, [place] - [facility] 06/20/2023 11:41:16 Tdap 01/29/2020 completed Sigrid Stears null, [place] - [facility] 06/20/2023 11:41:16 Tdap 03/31/2009 completed Sigrid Stears null, [place] - [facility] 06/20/2023 11:41:16 Hep B, adolescent or pediatric 10/01/2003 completed Sigrid Stears null, [place] - [facility] 06/20/2023 11:41:16 Past Encounters Encounter ID Performer Location Encounter Start Date Encounter Closed Date Diagnosis/Indication Diagnosis SNOMED-CT Code Diagnosis ICD10 Code Diagnosis Note [id number] Prasad Au APRN [address] [address] 02/18/2023 15:19:52 02/18/2023 16:04:20 Body mass index 30+ - obesity 234926522 Z68.34 Obesity 590720033 E66.9 Acute urin arjun tract infection 496380547 N39.0 Acute righ t otitis media 087098724 H66.91 [id number] Prasad Au APRN [address] [address] 06/20/2023 11:39:27 06/20/2023 12:15:36 Acute maxillary sinusitis 40825071 J01.00 Acute bronchitis 4143999 2 J20.9 Health Concerns Section Related Observation LastModified by Organization Detai ls LastModified Time None Recorded Concern Status LastModified by Organization Details LastModified Time None Recorded Advance Directives Directive N: Payers Insurance Date Sequence Insurance Name Policy Number Policy Nguyen Covered Member ID Nguyen Member ID Guarantor Name 06/28/2023 1 [employer] (POS) Lobo Duncan [id number] Lakia Duncan Notes Date Note Type Note Provider Name and Address Organization Details Recorded Time 02/18/2023 text/html 27 yr old female presents with a possible uti and bilateral ear problem. States her ears feel full and she is having hearing difficulty.pt states she is having burning,freq,urgen cy and hes since Tuesday Prasad Au, [employer] [address], [place], [address], [place] - [facility] 02/22/2023 17:24:36 06/20/2023 text/html Lakia is a 27 year old female who presents to the office today with concerns ofbilateral ear pain, sore throat, yellow/green congestion, cough, wheeze since tuesday and getting worse Prasad junaid, [employer] [address], [place], [address], [place] - [facility] 06/28/2023 08:54:37 OBGyn Episode No OBEpisode recorded.
--- OUTSIDE RECORDS SUMMARY | 2025-04-16 13:50 | XMS_ITS | Clinical Summary ---
Author Organization [facility] Address [address] [place] [address] Phone Care Team Providers Care Field Kiln Burner Name Role Phone Marco Antonio Duran MD [phone] [ ] Conditions or Problems Problem Name Problem Code Onset Date Status Entry Date Provider Comment Standard Description Annotate Eosinophilic Esophagitis 689284098 (SNOMED CT) 10/03 Active 10/03 Renitatiffany Chanel Eosinophilic esophagitis GERD (gastroesopha geal reflux disease) 646984226 (SNOMED CT) 10/03 Active 10/03 Renita Darío Gastroesophageal reflux disease Obesity due to excess calories E66.09 (ICD-10-CM ) 10/03 Active 10/03 Renita Darío Other obesity due to excess calories Toxic effect of venom of black spider, accidental (unintentiona l), subsequent encounter T63.311D (ICD-10-CM ) 10/03 Active 10/03 Renita Darío Toxic effect of venom of black spider, accidental (unintentional), subsequent encounter Cellulitis, foot, left 375273286 (SNOMED CT) 10/03 Active 10/03 Renita Darío Cellulitis of foot Cellulitis, toe, left 57409206 (SNOMED CT) 10/03 Active 10/03 Renita Darío Cellulitis of toe Medications Medication Instructions Start Date Stop Date Generic Name NDC Provider TRULANCE 3 MG TABS Take 3 mg by mouth once a day plecanatide 58861569609 Donato Valerio METFORMIN HCL ER 500 MG [id number] Take 3 tablet by mouth every night metformin (glucophage xr) 95519832366 Donato Valerio HYDROXYZINE HCL 25 MG TABS Take 1 tablet by mouth every night hydroxyzine hcl 52425116712 Donato Harvey uff CETIRIZINE HCL 10 MG TABS Take 1 tablet by mouth once a day cetirizine 15285000295 Donato Valerio IPRATROPIUM-ALBUT JAYDA 0.5-2.5 (3) MG/3ML SOLN 3 ml every six hours as needed ipratropium-albu terol 71871909947 Donato Valerio dupilumab 300 mg/2 mL pnij Inject 300 mg subcutaneously once a day dupilumab 300 mg/2 mL pnij Donato Valerio METOPROLOL SUCCINATE ER 25 MG [id number] Take 1 tablet by mouth once a day metoprolol succinate 47769879024 Donato Valerio BUSPIRONE HCL 7.5 MG TABS Take 1 tablet by mouth once a day buspirone 83767634304 Donato Valerio polysaccharide iron complex 180 mg iron cap Take 1 capsule by mouth twice a day polysaccharide iron complex 180 mg iron cap Donato Valerio ALBUTEROL SULFATE HFA 108 (90 Base) MCG/ACT AERS Inhale 2 puff by mouth every six hours as needed albuterol sulfate 83322580281 Donato Valerio METHOCARBAMOL 750 MG TABS Take 1 tablet by mouth three times a day as needed methocarbamol 39388533075 Donato Valerio PREGABALIN 50 MG CAPS Take 1-2 capsule by mouth every night pregabalin 44228957262 Donato Valerio DESVENLAFAXINE SUCCINATE ER 25 MG [id number] Take 1 tablet by mouth once a day desvenlafaxine succinate 16896412383 Donato Valerio MELOXICAM 15 MG TABS Take 1 tablet by mouth once a day meloxicam 71094096205 Donato Valerio MONTELUKAST SODIUM 10 MG TABS once a day montelukast 38485836082 Donato Valerio Lo Loestrin Fe (norethindrone-e. estradiol-iron) once a day norethindrone-e. estradiol-iron Donato Valerio PROTONIX 40 MG TBEC once a day pantoprazole 64700384295 Donato Valerio Iron (ferrous sulfate) (ferrous sulfate) twice a day ferrous sulfate Donato Stubbs ff CEFDINIR 300 MG CAPS twice a day cefdinir 26394253259 Donato Valerio PREGABALIN 50 MG CAPS Take 1-2 capsules (50-100 mg total) by mouth once at bedtime. 10/10 pregabalin 79941794807 QIE qieuser polysaccharide iron complex 180 mg iron cap Take 1 capsule by mouth 2 (two) times daily. 10/10 polysaccharide iron complex 180 mg iron cap QIE qieuser TRULANCE 3 MG TABS Take 3 mg by mouth daily. 10/10 plecanatide 50494325893 QIE qieuser METOPROLOL SUCCINATE ER 25 MG [id number] Take 1 tablet (25 mg total) by mouth daily. 10/10 metoprolol succinate 86018098164 QIE qieuser METHOCARBAMOL 750 MG TABS Take 1 tablet (750 mg total) by mouth 3 (three) times daily as needed for muscle spasms. 10/10 methocarbamol 99557234396 QIE qieuser METFORMIN HCL ER 500 MG [id number] Take 3 tablets (1,500 mg total) by mouth daily with dinner. 10/10 metformin (glucophage xr) 76320027396 QIE qieuser MELOXICAM 15 MG TABS Take 1 tablet (15 mg total) by mouth daily. 10/10 meloxicam 70490099929 QIE qieuser IPRATROPIUM-ALBUT JAYDA 0.5-2.5 (3) MG/3ML SOLN Take 3 mLs by nebulization every 6 (six) hours as needed. 10/10 ipratropium-albu terol 53711666879 QIE qieuser HYDROXYZINE HCL 25 MG TABS Take 1 tablet (25 mg total) by mouth nightly. 10/10 hydroxyzine hcl 43454550003 QIE qieuser dupilumab 300 mg/2 mL pnij Inject 300 mg subcutaneously every 14 (fourteen) days. 10/10 dupilumab 300 mg/2 mL pnij QIE qieuser DESVENLAFAXINE SUCCINATE ER 25 MG [id number] Take 1 tablet (25 mg total) by mouth daily. 10/10 desvenlafaxine succinate 04340444024 QIE qieuser CETIRIZINE HCL 10 MG TABS Take 1 tablet (10 mg total) by mouth daily. 10/10 cetirizine 67574991174 QIE qieuser BUSPIRONE HCL 15 MG TABS Take 1 tablet (15 mg total) by mouth 3 (three) times daily. 10/10 buspirone 93276615500 QIE qieuser ALBUTEROL SULFATE HFA 108 (90 Base) MCG/ACT AERS Inhale 2 puffs by mouth via inhaler every 6 (six) hours as needed for wheezing or shortness of breath. 10/10 albuterol sulfate 88309147288 QIE qieuser Medications Administered No information available. Allergies, Adverse Reactions, Alerts Allergy Name Reaction Description Start Date Severity Statu s Provider SULFA (SULFONAMIDE ANTIBIOTICS) Rash Moderate Active Maggy Ott PENICILLIN Rash Moderate Active Maggy Durh am METRONIDAZOLE Mild Active Maggy D urham Results Date Name Value Unit Range Flag Description Office Visit: Office Visit:r m 4 hfu MEDS REVIEW Done Documenta tion of current medications (procedure) ORALTOBACUSE Unknown Tobacco smoking status SMOK STATUS Never smoker Toba corporate accounting manager smoking status Plan of Care No information available. Procedures No information available. Vital Signs Date Name Value Unit Description BMI (Body Mass Index) 36.38 kg/m2 Bod y Mass Index (Ratio) Body Temperature 97.9 [degF] temperat ure E&M BP Diastolic 88 mm[Hg] blood pressu re, diastolic BP Systolic 138 mm[Hg] blood pressur e, systolic Heart Rate 88 /min pulse rate Height 70 [in_us] height E&M Respiratory Rate 16 /min respirat ory rate E&M Weight Measured 253.6 [lb_av] weight E& M Weight Measured 253.6 [lb_av] weight E& M Immunizations No information available. Advance Directives Directive Description Start Date NO ADVANCED DIRECTIVE
--- OUTSIDE RECORDS SUMMARY | 2025-04-16 13:50 | XMS_ITS | Clinical Summary ---
Author Organization Healthcare Address [address] [place] [address] Care Team Providers Care Optical Brightener Maker Helper Name Role Phone Foreign Mccrary MD Primary Care Provider + [phone] Family History Medical History Relation Name Comments Asthma Mother Hypertension Mother Lung cancer Paternal Grandfather Conversions - Other Paternal Grandmother Chronic Lupus Erythematosus Relation Name Status Comments Mother Paternal Grandfather Paternal Grandmother Social History Tobacco Use Types Packs/Day Years Used Date Smoking Tobacco: Never Alcohol Use Standard Drinks/Week Comments No 0 (1 standard drink = 0.6 oz pure alcohol) Alcoholic Drinks/day: Never Drank Alcohol Comments Unknown Sex and Gender Information Value Date Recorded Sex Assigned at Not on file Legal Sex Female 8:25 PM EDT Gender Identity Not on file Sexual Orientation Not on file Last Filed Vital Signs Vital Sign Reading Time Taken Comments Blood Pressure - - Pulse - - Temperature - - Respiratory Rate - - Oxygen Saturation - - Inhaled Oxygen Concentration - - Weight 88 kg (194 lb 0.1 oz) 05/05/2015 2:43 PM EDT Height 177.8 cm (5' 10 ) 05/05/2015 2:43 PM EDT Body Mass Index 27.84 05/05/2015 2:43 PM EDT Plan of Treatment Not on file Care Teams Optical Brightener Maker Helper Relationship Specialty Start Date End Date Foreign Mccrary MD [address] [place] [address] PCP - General 02/06/21
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
--- OUTSIDE RECORDS SUMMARY | 2025-04-16 13:50 | XMS_ITS | Clinical Summary ---
Author Organization [employer] ([place], [place], [place], [place]) Address [address] [place] [address] Care Team Providers Care Radiology Receptionist Name Role Phone Mini Jaramillo APRN Primary [...] Name Administration Dates Next Due Tdap 09/20/2024 Family History Medical History Relation Name Comments Asthma Brother Hypertension Brother Hypertension Father Colon cancer Maternal Grandmother Asthma Mother Heart disease Mother Heart failure Mother Hypertension Mother Diabetes Paternal Grandfather Heart disease Paternal Grandfather Lung cancer Paternal Grandfather Relation Name Status Comments Brother Father Maternal Grandmother Mother Paternal Grandfather Social History Tobacco Use Types Packs/Day Years Used Date Smoking Tobacco: Never Smokeless Tobacco: Never Tobacco Cessation:Counseling Given: Not Answered Alcohol Use Standard Drinks/Week Comments Yes 0 (1 standard drink = 0.6 oz pur e alcohol) occassionally Utilities Answer Date Recorded In the past 12 months, has t he [employer], gas, oil, or water company threatened to shut off services in your home? No 09/20/2024 Interpersonal Safety Answer Date Record ed How often does anyone, indigo stuart family and friends, physically hurt you? Never 09/20/2024 How often does anyone, indigo stuart family and friends, insult or talk down to you? Never 09/20/2024 How often does anyone, inclu ding family and friends, threaten you with harm? Never 09/20/2024 How often does anyone, indigo stuart family and friends, scream or curse at you? Never 09/20/2024 Housing Stability Answer Date Recorded What is your living situation today? I have a [place] place to live 09/20/2024 Living situation [...] Do you speak a language other than German at [facility]? No 09/20/2024 Do you want help with [...] 01/16/2025 11:00 AM EDT Plan of Treatment Health Maintenance Due Date Last Done Comments Depression Screening (12+) 2009 HIV Screening 2012 Hepatitis C Screening 2015 Pneumococcal Vaccine: 0-49 Y ears (1 of 2 - PCV) 2016 Lipid Panel 2017 Pap Smear 2018 COVID-19 VACCINE (3 - season) 05/27/202404/2021, 10/02/2020 Influenza Vaccine (#1) 2025 Tobacco Cessation Counseling and Screening (12+) 01/16/2026 01/16/2025 DTAP/TDAP/TD VACCINES (4 - T d or Tdap) 09/20/2034 09/20/2024, 01/29/2020, 03/31/2009 Insurance UMR Advance Directives For more information, please contact: [phone] * Full Code (Latest Code Status on File) Date Activated Date Inactivated Comments 09/20/2024 4:53 PM 09/22/2024 4:37 PM Care Teams Radiology Receptionist Relationship Specialty Start Date End Date Mini Jaramillo APRN [address] [address] PCP - General Nurse Practitioner 01/19/24
--- OUTSIDE RECORDS SUMMARY | 2025-04-16 13:50 | XMS_ITS | Clinical Summary ---
Author Organization [facility] Address [address] [place] [address] Care Team Providers Care Digital Communications Manager Name Role Phone Unknown, Pcp Primary Care Provider Unavailabl e Source Comments [facility] is fully rolled [facility] with thefollowing exceptions:[facility] Allergies Active Allergy Reactions Criticality Noted Date Comments Penicillins Rash 08/25/2010 Sulfa Antibiotics Rash 08/25/2010 Medications montelukast (SINGULAIR) 10 MG tabletIndicatio ns:Thyroid nodule Take 1 Tab by mouth every 24 hours. Active fluticasone-aman meterol (ADVAIR DISKUS) 250-50 MCG/DOSE inhalerIndicati ons:Thyroid nodule Take 1 Puff by inhalation 1 time daily. Active levocetirizine (XYZAL) 5 MG tabletIndicatio ns:Thyroid nodule Take 1 Tab by mouth 1 time daily. Active Active Problems Problem Noted Date Diagnosed Date Thyroid nodule 08/25/2010 Asthma 08/25/2010 Family History Medical History Relation Name Comments Other Brother boo nephrolithiasis Other Father Lynn nephrolithiasis , migrains Obesity/Overweight Maternal Aunt Hyperthyroidism Maternal Uncle Hypertension Mother Anahi Thyroid Disease Other thyroid canc er in maternal second cousin Diabetes Paternal Grandfather Relation Name Status Comments Brother boo Alive Father Lynn Alive Maternal Aunt Maternal Uncle Mother Anahi Alive Other Paternal Grandfather Social History Tobacco Use Types Packs/Day Years Used Date Smoking Tobacco: Never Assessed Comments Unknown Sex and Gender Information Value Date Recorded Sex Assigned at Not on file Legal Sex Female 5:34 AM EST Gender Identity Not on file Sexual Orientation Not on file Last Filed Vital Signs Vital Sign Reading Time Taken Comments Blood Pressure 121/73 08/25/2010 12:47 PM EST Pulse 67 08/25/2010 12:47 PM EST Temperature - - Respiratory Rate - - Oxygen Saturation - - Inhaled Oxygen Concentration - - Weight 84 kg (185 lb 3 oz) 08/25/2010 12:[address] Height 169.2 cm (5' 6.61 ) 08/25/2010 12:[address] Body Mass Index 29.34 08/25/2010 12:47 PM EST Plan of Treatment Health Maintenance Due Date Last Done Comments MMR IMMUNIZATION (1 of 1 - S tandard series) 1998 DTAP/Tdap/Td IMMUNIZATION (1 - Tdap) 2004 VARICELLA IMMUNIZATION (1 of 2 - 13+ 2-dose series) 2010 HEPATITIS B IMMUNIZATION (1 of 3 - 19+ 3-dose series) 2016 COVID-19 Vaccine ( - 2023-2 5 season) 2024 AMB SEASONAL FLU VACCINE (#1) 05/27/2025 HIB IMMUNIZATION Aged Out No longer e ligible based on patient's age to complete this topic HPV IMMUNIZATION Aged Out No longer e ligible based on patient's age to complete this topic IPV IMMUNIZATION Aged Out No longer e ligible based on patient's age to complete this topic MCV4 IMMUNIZATION Aged Out No longer eligible based on patient's age to complete this topic MENINGOCOCCAL B VACCINE Aged Out No l onger eligible based on patient's age to complete this topic PNEUMOCOCCAL IMMUNIZATION Aged Out No longer eligible based on patient's age to complete this topic Respiratory Syncytial Virus (RSV) <20mo Aged Out No longer eligible b ased on patient's age to complete this topic Insurance [facility] [place] [address] Care Teams Digital Communications Manager Relationship Specialty Start Date End Date Unknown, Pcp PCP - General 02/26/13
== END 2025-04-16 23:59 | disposition home or self-care (01) ==
LOC: RAD 13:48
PROVIDERS: PCP Nurse Practitioner Family; Visit Provider Nurse Practitioner Family
DX: M51.370 Other intervertebral disc degeneration, lumbosacral region with discogenic back pain only (principal); M46.07 Spinal enthesopathy, lumbosacral region
CPT/HCPCS: 72100

== ENCOUNTER 2025-04-29 12:36 | Outpatient (CLI) | payer OTHER, SELFPAY ==
--- OUTSIDE RECORDS SUMMARY | 2025-04-29 12:38 | XMS_ITS | Clinical Summary ---
Author Organization [facility] Address [address] [place] [address] Phone Care Team Providers Care Glass Belt Sander Name Role Phone Marco Antonio Duran MD [ ] Conditions or Problems Problem Name Problem Code Onset Date Status Entry Date Provider Comment Standard Description Annotate Eosinophilic Esophagitis 672301321 (SNOMED CT) 10/03 Active 10/03 Renitatiffany Chanel Eosinophilic esophagitis GERD (gastroesopha geal reflux disease) 793307122 (SNOMED CT) 10/03 Active 10/03 Renita Darío Gastroesophageal reflux disease Obesity due to excess calories E66.09 (ICD-10-CM ) 10/03 Active 10/03 Renita Darío Other obesity due to excess calories Toxic effect of venom of black spider, accidental (unintentiona l), subsequent encounter T63.311D (ICD-10-CM ) 10/03 Active 10/03 Renita Darío Toxic effect of venom of black spider, accidental (unintentional), subsequent encounter Cellulitis, foot, left 331956999 (SNOMED CT) 10/03 Active 10/03 Renita Darío Cellulitis of foot Cellulitis, toe, left 27994405 (SNOMED CT) 10/03 Active 10/03 Renita Darío Cellulitis of toe Medications Medication Instructions Start Date Stop Date Generic Name NDC Provider TRULANCE 3 MG TABS Take 3 mg by mouth once a day plecanatide 50106084264 Donato Valerio METFORMIN HCL ER 500 MG [id number] Take 3 tablet by mouth every night metformin (glucophage xr) 20032454579 Donato Valerio HYDROXYZINE HCL 25 MG TABS Take 1 tablet by mouth every night hydroxyzine hcl 82419859307 Donato Harvey uff CETIRIZINE HCL 10 MG TABS Take 1 tablet by mouth once a day cetirizine 74931178954 Donato Valerio IPRATROPIUM-ALBUT JAYDA 0.5-2.5 (3) MG/3ML SOLN 3 ml every six hours as needed ipratropium-albu terol 14624904706 Donato Valerio dupilumab 300 mg/2 mL pnij Inject 300 mg subcutaneously once a day dupilumab 300 mg/2 mL pnij Donato Valerio METOPROLOL SUCCINATE ER 25 MG [id number] Take 1 tablet by mouth once a day metoprolol succinate 76466843302 Donato Valerio BUSPIRONE HCL 7.5 MG TABS Take 1 tablet by mouth once a day buspirone 99866958327 Donato Valerio polysaccharide iron complex 180 mg iron cap Take 1 capsule by mouth twice a day polysaccharide iron complex 180 mg iron cap Donato Valerio ALBUTEROL SULFATE HFA 108 (90 Base) MCG/ACT AERS Inhale 2 puff by mouth every six hours as needed albuterol sulfate 88627559245 Donato Valerio METHOCARBAMOL 750 MG TABS Take 1 tablet by mouth three times a day as needed methocarbamol 36601075138 Donato Valerio PREGABALIN 50 MG CAPS Take 1-2 capsule by mouth every night pregabalin 84712391864 Donato Valerio DESVENLAFAXINE SUCCINATE ER 25 MG [id number] Take 1 tablet by mouth once a day desvenlafaxine succinate 04234595684 Donato Valerio MELOXICAM 15 MG TABS Take 1 tablet by mouth once a day meloxicam 43038046781 Donato Valerio MONTELUKAST SODIUM 10 MG TABS once a day montelukast 13355594940 Donato Valerio Lo Loestrin Fe (norethindrone-e. estradiol-iron) once a day norethindrone-e. estradiol-iron Donato Valerio PROTONIX 40 MG TBEC once a day pantoprazole 81346919196 Donato Valerio Iron (ferrous sulfate) (ferrous sulfate) twice a day ferrous sulfate Donato Stubbs ff CEFDINIR 300 MG CAPS twice a day cefdinir 81323765675 Donato Valerio PREGABALIN 50 MG CAPS Take 1-2 capsules (50-100 mg total) by mouth once at bedtime. 10/10 pregabalin 74866768488 QIE qieuser polysaccharide iron complex 180 mg iron cap Take 1 capsule by mouth 2 (two) times daily. 10/10 polysaccharide iron complex 180 mg iron cap QIE qieuser TRULANCE 3 MG TABS Take 3 mg by mouth daily. 10/10 plecanatide 71559290679 QIE qieuser METOPROLOL SUCCINATE ER 25 MG [id number] Take 1 tablet (25 mg total) by mouth daily. 10/10 metoprolol succinate 94838021461 QIE qieuser METHOCARBAMOL 750 MG TABS Take 1 tablet (750 mg total) by mouth 3 (three) times daily as needed for muscle spasms. 10/10 methocarbamol 91758975272 QIE qieuser METFORMIN HCL ER 500 MG [id number] Take 3 tablets (1,500 mg total) by mouth daily with dinner. 10/10 metformin (glucophage xr) 16325570524 QIE qieuser MELOXICAM 15 MG TABS Take 1 tablet (15 mg total) by mouth daily. 10/10 meloxicam 75408872185 QIE qieuser IPRATROPIUM-ALBUT JAYDA 0.5-2.5 (3) MG/3ML SOLN Take 3 mLs by nebulization every 6 (six) hours as needed. 10/10 ipratropium-albu terol 54025238745 QIE qieuser HYDROXYZINE HCL 25 MG TABS Take 1 tablet (25 mg total) by mouth nightly. 10/10 hydroxyzine hcl 09672308246 QIE qieuser dupilumab 300 mg/2 mL pnij Inject 300 mg subcutaneously every 14 (fourteen) days. 10/10 dupilumab 300 mg/2 mL pnij QIE qieuser DESVENLAFAXINE SUCCINATE ER 25 MG [id number] Take 1 tablet (25 mg total) by mouth daily. 10/10 desvenlafaxine succinate 68886797441 QIE qieuser CETIRIZINE HCL 10 MG TABS Take 1 tablet (10 mg total) by mouth daily. 10/10 cetirizine 26054641584 QIE qieuser BUSPIRONE HCL 15 MG TABS Take 1 tablet (15 mg total) by mouth 3 (three) times daily. 10/10 buspirone 99497647019 QIE qieuser ALBUTEROL SULFATE HFA 108 (90 Base) MCG/ACT AERS Inhale 2 puffs by mouth via inhaler every 6 (six) hours as needed for wheezing or shortness of breath. 10/10 albuterol sulfate 95875781727 QIE qieuser Medications Administered No information available. [...] smoking status SMOK STATUS Never smoker Toba tobacco grader smoking status Plan of Care No information [...]
--- OUTSIDE RECORDS SUMMARY | 2025-04-29 12:39 | XMS_ITS | Clinical Summary ---
Author Organization [employer] ([place], [place], [place], [place]) Address [address] [place] [address] Care Team Providers Care Juvenile Correctional Officer Name Role Phone Mini Jaramillo APRN Primary [...] (25 mg total) by mouth nightly. Active ipratropium-al buteroL (DUO-NEB) 0.5 mg-3 mg(2.5 mg base)/3 mL [...] (25 mg total) by mouth daily. Active polysaccharide iron complex 180 mg iron [...] mg total) by mouth daily. Active metFORMIN (GLUCOPHAGE-XR ) 500 MG 24 hr tablet Take 3 tablets (1,500 mg total) by mouth daily with dinner. Active pantoprazole (PROTONIX) 40 MG tablet Take 1 tablet (40 mg total) by mouth daily. 11/13/19 25 Active Dupixent Pen 300 mg/2 mL pnij INJECT 1 PEN (300 MG) UNDER THE SKIN EVERY WEEK 8 mL 04/29/20 25 Active dupilumab 300 mg/2 mL pnijIndication s:EOE Inject 300 mg under the skin every 14 (fourteen) days. 025 Discontinued Active Problems Problem Noted Date Diagnosed Date Black spider bite 09/20/2024 Intractable pain 09/20/2024 Intractable muscle spasm 09/20/2024 Eosinophilic esophagitis 01/19/2024 Tachycardia PCOS (polycystic ovarian syndrome) GERD (gastroesophageal reflux disease) Asthma Obesity Encounters Date Type Department Care Team Description 04/26/2025 [facility] Gastroenterology [address] [place] [phone] Anahi Cloud APRN from Last 3 Months Immunizations Name Administration Dates Next Due Tdap [...] the past 12 months, has t he electric, gas, oil, or water company threatened to [...] your living situation today? I have a [facility] place to live 09/20/2024 Living situation problems Not on file 2023 Food Insecurity Answer Date Recorded Within the past 12 months, y ou worried that your food would run out before you got money to buy more. Never true 09/20/2024 Within the past 12 months, coy he food you bought just didn't last [...] Do you speak a language other than [place] at [place]? No 09/20/2024 Do you want help with [...] Panel 2017 Pap Smear 2018 COVID-19 VACCINE ( season) 05/27/202404/2021, 10/02/2020 Influenza Vaccine (#1) 2025 Tobacco Cessation Counseling and Screening (12+) 01/16/2026 01/16/2025 DTAP/TDAP/TD VACCINES (4 - T d or Tdap) 09/20/2034 09/20/2024, 01/29/2020, 03/31/2009 Insurance UMR Advance Directives For more information, please contact: [phone] * Full Code (Latest Code Status on File) Date Activated Date Inactivated Comments 09/20/2024 4:53 PM 09/22/2024 4:37 PM Care Teams Juvenile Correctional Officer Relationship Specialty Start Date End Date Mini Jaramillo APRN [address] [address] PCP - General Nurse Practitioner 01/19/24
--- OUTSIDE RECORDS SUMMARY | 2025-04-29 12:39 | XMS_ITS | Clinical Summary ---
Author Organization [facility] Address [address] [place] [address] Care Team Providers Care Nurses' Association Executive Director Name Role Phone Unknown, Pcp Primary Care Provider Unavailabl e Source Comments [facility]following [facility] Allergies Active Allergy Reactions Criticality Noted [...] Vaccine ( - 2023-2 5 season) 2024 HPV IMMUNIZATION (1 - 3-dose SCDM series) 2024 AMB SEASONAL FLU VACCINE (#1) 05/27/2025 [...] patient's age to complete this topic Insurance [facility] Care Teams Nurses' Association Executive Director Relationship Specialty Start Date End Date Unknown, Pcp PCP - General 02/26/13
--- OUTSIDE RECORDS SUMMARY | 2025-04-29 12:39 | XMS_ITS | Clinical Summary ---
Author Organization [facility] Address [address] [place] [address] Care Team Providers Care Tap Builder Name Role Phone Foreign Mccrary MD Primary Care Provider [phone] Family History Medical History Relation Name Comments [...] of Treatment Not on file Care Teams Tap Builder Relationship Specialty Start Date End Date Foreign Mccrary MD [address] [place] [address] PCP - General 02/06/21
--- OUTSIDE RECORDS SUMMARY | 2025-04-29 12:39 | XMS_ITS | Encounter Summary ---
Author Organization [employer] ([place], [place], [place], [place]) Address [address] [place] [address] Care Team Providers Care Nurse Outreach Case Manager Name Role Phone Mini Jaramillo PREPARED FOODS TEAM LEADER Primary Care Provider [phone] Reason for Visit * Reason Comments Medication Refill Encounter Details Date Type Department Care Team (Late st Contact Info) Description 04/26/2025 Refill [facility] Gastroenterology [address] [place] [phone] Anahi Cloud APRN Social History Tobacco Use Types Packs/Day Years Used Date Smoking Tobacco: Never Smokeless Tobacco: Never Alcohol Use Standard Drinks/Week Comments Yes 0 [...] your living situation today? I have a [facility] place to live 09/20/2024 Living situation [...] Do you speak a language other than Iranian at [facility]? No 09/20/2024 [...] on file Sexual Orientation Not on file documented as of this encounter Plan of Treatment Not on file documented as of this encounter Visit Diagnoses Not on filedocumented in this encounter Care Teams Nurse Outreach Case Manager Relationship Specialty Start Date End Date Mini Jaramillo, PREPARED FOODS TEAM LEADER [address] [place] [address] PCP - General Nurse Practitioner 01/19/24 documented as of this encounter
--- OUTSIDE RECORDS SUMMARY | 2025-04-29 12:39 | XMS_ITS | Referral Summary ---
Author Organization [employer] ([place], [place], [place], [place]) Address [address] [place] [address] Care Team Providers Care Bill Distributor Name Role Phone Mini Jaramillo APRN Primary Care Provider Encounters Date Type Department Care Team Description 04/26/2025 Refill [facility] Gastroenterology [address] [place] [phone] Anahi Cloud APRN from Last 3 Months Allergies Active Allergy Reactions Criticality Noted Date [...] Date Record ed How often does anyone, inclu ding family and friends, physically hurt you? Never [...] your living situation today? I have a [facility] place to live 09/20/2024 Living situation problems [...] Do you speak a language other than Greek at [facility]? No 09/20/2024 Do you want help with [...] Plan of Treatment Not on file Insurance [employer] [id number] R Advance Directives For more information, please contact: [phone] * Full Code (Latest Code Status on File) Date Activated Date Inactivated Comments 09/20/2024 4:53 PM 09/22/2024 4:37 PM Care Teams Bill Distributor Relationship Specialty Start Date End Date Mini Jaramillo APRN [address] [address] PCP - General Nurse Practitioner 01/19/24
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
[2025-04-30 21:09] LABS: Neisseria gonorrhoeae, NAA Negative (Negative)
== END 2025-04-29 23:59 | disposition home or self-care (01) ==
LOC: RAD 12:37
PROVIDERS: Obstetrics & Gynecology; PCP Nurse Practitioner Family; Visit Provider Nurse Practitioner Family
DX: M47.814 Spondylosis without myelopathy or radiculopathy, thoracic region (principal); M51.24 Other intervertebral disc displacement, thoracic region; N89.8 Other specified noninflammatory disorders of vagina
CPT/HCPCS: 72146; 87491; 87591; 87798; 87801

== ENCOUNTER 2025-06-07 14:16 | Outpatient (CLI) | payer OTHER, SELFPAY ==
--- OUTSIDE RECORDS SUMMARY | 2025-06-07 14:20 | XMS_ITS | Encounter Summary ---
Author Organization [employer] ([place], [place], [place], [place]) Address [address] [place] [address] Care Team Providers Care Assistant Store Leader Name Role Phone Mini Jaramillo ELECTRICITY TRADING ANALYST Primary Care Provider Reason for Visit * Reason Comments Medication Refill Encounter Details Date Type Department Care Team (Late st Contact Info) Description 04/26/2025 Refill [facility] Gastroenterology [address] [place] [phone] Anahi Cloud APRN Social History Tobacco [...] your living situation today? I have a [facility] place to live 09/20/2024 Living situation [...] Do you speak a language other than Vietnamese at [facility]? No 09/20/2024 Do you want [...] on filedocumented in this encounter Care Teams Assistant Store Leader Relationship Specialty Start Date End Date Mini Jaramillo, ELECTRICITY TRADING ANALYST [address] [place] [address] PCP - General Nurse Practitioner 01/19/24 documented as of this encounter
--- OUTSIDE RECORDS SUMMARY | 2025-06-07 14:20 | XMS_ITS | Referral Summary ---
Author Organization [employer] ([place], [place], [place], [place]) Address [address] [place] [address] Care Team Providers Care Smart Energy Specialist Name Role Phone Mini Jaramillo APRN Primary Care Provider [phone] Encounters Date Type Department Care Team Description 04/26/2025 Refill [facility] Gastroenterology [address] [place] [phone] Anahi Cloud APRN from Last 3 [...] tablet (40 mg total) by mouth daily. 5 Active Dupixent Pen 300 mg/2 mL pnij INJECT 1 PEN (300 MG) UNDER THE SKIN EVERY WEEK 8 mL 5 Active Active Problems Problem Noted Date Diagnosed Date Black spider bite 09/20/2024 Intractable pain 09/20/2024 Intractable muscle spasm 09/20/2024 Eosinophilic esophagitis 01/19/2024 Tachycardia PCOS (polycystic ovarian syndrome) GERD (gastroesophageal reflux disease) Asthma Obesity Immunizations Immunization Administration Dates Next Due Tdap 09/20/2024 Social History Tobacco Use Types Packs/Day Years Used Date Smoking Tobacco: Never Smokeless Tobacco: Never Tobacco Cessation:Counseling Given: Not Answered Alcohol Use Standard Drinks/Week Comments Yes 0 (1 standard drink = 0.6 oz pur e alcohol) occassionally Utilities Answer Date Recorded In the past 12 months, has t he [employer], gas, oil, or water company threatened to [...] living situation today? I have a [facility] place to live 09/20/2024 Living situation problems [...] Do you speak a language other than Barbadian at [facility]? No 09/20/2024 Do [...] Plan of Treatment Not on file Insurance R Advance Directives For more information, please contact: [phone] * Full Code (Latest Code Status on File) Date Activated Date Inactivated Comments 09/20/2024 4:53 PM 09/22/2024 4:37 PM Care Teams Smart Energy Specialist Relationship Specialty Start Date End Date Mini Jaramillo, FOOTWEAR SALES REPRESENTATIVE [address] [id number] PCP - General Nurse Practitioner 01/19/24
--- OUTSIDE RECORDS SUMMARY | 2025-06-07 14:20 | XMS_ITS | Clinical Summary ---
Author Organization [facility] Address [address] [place] [address] Phone Care Team Providers Care Candy Wrapping Machine Operator Name Role Phone Marco Antonio Duran MD [ ] Conditions or Problems Problem Name Problem Code Onset Date Status Entry Date Provider Comment Standard Description Annotate Eosinophilic Esophagitis 036820926 (SNOMED CT) 10/03 Active 10/03 Renitatiffany Chanel Eosinophilic esophagitis GERD (gastroesopha geal reflux disease) 574924588 (SNOMED CT) 10/03 Active 10/03 Renita Darío Gastroesophageal reflux disease Obesity due to excess calories E66.09 (ICD-10-CM ) 10/03 Active 10/03 Renita Darío Other obesity due to excess calories Toxic effect of venom of black spider, accidental (unintentiona l), subsequent encounter T63.311D (ICD-10-CM ) 10/03 Active 10/03 Renita Darío Toxic effect of venom of black spider, accidental (unintentional), subsequent encounter Cellulitis, foot, left 220882894 (SNOMED CT) 10/03 Active 10/03 Renita Darío Cellulitis of foot Cellulitis, toe, left 27170879 (SNOMED CT) 10/03 Active 10/03 Renita Darío Cellulitis of toe Medications Medication Instructions Start Date Stop Date Generic Name NDC Provider TRULANCE 3 MG TABS Take 3 mg by mouth once a day plecanatide 68062861829 Donato Valerio METFORMIN HCL ER 500 MG [id number] Take 3 tablet by mouth every night metformin (glucophage xr) 98479562856 Donato Valerio HYDROXYZINE HCL 25 MG TABS Take 1 tablet by mouth every night hydroxyzine hcl 82499295428 Donato Harvey uff CETIRIZINE HCL 10 MG TABS Take 1 tablet by mouth once a day cetirizine 84969464231 Donato Valerio IPRATROPIUM-ALBUT JAYDA 0.5-2.5 (3) MG/3ML SOLN 3 ml every six hours as needed ipratropium-albu terol 50224193364 Donato Valerio dupilumab 300 mg/2 mL pnij Inject 300 mg subcutaneously once a day dupilumab 300 mg/2 mL pnij Donato Valerio METOPROLOL SUCCINATE ER 25 MG [id number] Take 1 tablet by mouth once a day metoprolol succinate 53382137147 Donato Valerio BUSPIRONE HCL 7.5 MG TABS Take 1 tablet by mouth once a day buspirone 75415338201 Donato Valerio polysaccharide iron complex 180 mg iron cap Take 1 capsule by mouth twice a day polysaccharide iron complex 180 mg iron cap Donato Valerio ALBUTEROL SULFATE HFA 108 (90 Base) MCG/ACT AERS Inhale 2 puff by mouth every six hours as needed albuterol sulfate 05397471222 Donato Valerio METHOCARBAMOL 750 MG TABS Take 1 tablet by mouth three times a day as needed methocarbamol 73277135248 Donato Valerio PREGABALIN 50 MG CAPS Take 1-2 capsule by mouth every night pregabalin 25913752430 Donato Valerio DESVENLAFAXINE SUCCINATE ER 25 MG [id number]-[id number] Take 1 tablet by mouth once a day desvenlafaxine succinate 17877912621 Donato Valerio MELOXICAM 15 MG TABS Take 1 tablet by mouth once a day meloxicam 57973760749 Donato Valerio MONTELUKAST SODIUM 10 MG TABS once a day montelukast 89742556866 Donato Valerio Lo Loestrin Fe (norethindrone-e. estradiol-iron) once a day norethindrone-e. estradiol-iron Donato Valerio PROTONIX 40 MG TBEC once a day pantoprazole 23630603938 Donato Valerio Iron (ferrous sulfate) (ferrous sulfate) twice a day ferrous sulfate Donato Stubbs ff CEFDINIR 300 MG CAPS twice a day cefdinir 45163579556 Donato Valerio PREGABALIN 50 MG CAPS Take 1-2 capsules (50-100 mg total) by mouth once at bedtime. 10/10 pregabalin 49496993331 QIE qieuser polysaccharide iron complex 180 mg iron cap Take 1 capsule by mouth 2 (two) times daily. 10/10 polysaccharide iron complex 180 mg iron cap QIE qieuser TRULANCE 3 MG TABS Take 3 mg by mouth daily. 10/10 plecanatide 30255586048 QIE qieuser METOPROLOL SUCCINATE ER 25 MG [id number] Take 1 tablet (25 mg total) by mouth daily. 10/10 metoprolol succinate 03785972740 QIE qieuser METHOCARBAMOL 750 MG TABS Take 1 tablet (750 mg total) by mouth 3 (three) times daily as needed for muscle spasms. 10/10 methocarbamol 11307500046 QIE qieuser METFORMIN HCL ER 500 MG [id number] Take 3 tablets (1,500 mg total) by mouth daily with dinner. 10/10 metformin (glucophage xr) 70102862878 QIE qieuser MELOXICAM 15 MG TABS Take 1 tablet (15 mg total) by mouth daily. 10/10 meloxicam 73198457545 QIE qieuser IPRATROPIUM-ALBUT JAYDA 0.5-2.5 (3) MG/3ML SOLN Take 3 mLs by nebulization every 6 (six) hours as needed. 05/31 ipratropium-albu terol 95894993608 QIE qieuser HYDROXYZINE HCL 25 MG TABS Take 1 tablet (25 mg total) by mouth nightly. 10/10 hydroxyzine hcl 10770260662 QIE qieuser dupilumab 300 mg/2 mL pnij Inject 300 mg subcutaneously every 14 (fourteen) days. 10/10 dupilumab 300 mg/2 mL pnij QIE qieuser DESVENLAFAXINE SUCCINATE ER 25 MG [id number] Take 1 tablet (25 mg total) by mouth daily. 10/10 desvenlafaxine succinate 70802738411 QIE qieuser CETIRIZINE HCL 10 MG TABS Take 1 tablet (10 mg total) by mouth daily. 10/10 cetirizine 14783742432 QIE qieuser BUSPIRONE HCL 15 MG TABS Take 1 tablet (15 mg total) by mouth 3 (three) times daily. 10/10 buspirone 77925843541 QIE qieuser ALBUTEROL SULFATE HFA 108 (90 Base) MCG/ACT AERS Inhale 2 puffs by mouth via inhaler every 6 (six) hours as needed for wheezing or shortness of breath. 10/10 albuterol sulfate 32136420434 QIE qieuser Medications Administered No information available. [...] smoking status SMOK STATUS Never smoker Toba inside account executive smoking status Plan of Care No information [...]
--- OUTSIDE RECORDS SUMMARY | 2025-06-07 14:20 | XMS_ITS | Clinical Summary ---
Author Organization [facility] Address [address] [place] [address] Care Team Providers Care Solar Crew Member Name Role Phone Foreign Mccrary MD Primary Care Provider + [phone] Family History Medical History Relation Name Comments [...] of Treatment Not on file Care Teams Solar Crew Member Relationship Specialty Start Date End Date Foreign Mccrary MD [address] [place] [address] PCP - General 02/06/21
--- OUTSIDE RECORDS SUMMARY | 2025-06-07 14:20 | XMS_ITS | Clinical Summary ---
Author Organization [facility] Address [address] [place] [address] Care Team Providers Care Conservation Biology Professor Name Role Phone Unknown, Pcp Primary Care Provider Unavailabl e Source Comments [facility] is fully rolled out with thefollowing exceptions:[facility] Allerg[facility] Active Allergy Reactions Criticality Noted Date [...] of 3 - 19+ 3-dose series) 2016 HPV IMMUNIZATION (1 - 3-dose SCDM series) 2024 AMB SEASONAL FLU VACCINE (#1) 05/27/2025 COVID-19 Vaccine (1 - 2023-2 5 season) 2025 HIB IMMUNIZATION Aged Out No longer e [...] patient's age to complete this topic Insurance [facility] Care Teams Conservation Biology Professor Relationship Specialty Start Date End Date Unknown, Pcp PCP - General 02/26/13
--- OUTSIDE RECORDS SUMMARY | 2025-06-07 14:20 | XMS_ITS | Clinical Summary ---
Author Organization [facility] ([place], [place], [place], [place]) Address [address] [place] [address] Care Team Providers Care Supervising Broker Name Role Phone Mini Jaramillo APRN Primary [...] Date Type Department Care Team Description 04/26/2025 [facility] Gastroenterology [address] [place] [phone] Anahi Cloud APRN from Last 3 Months Immunizations Immunization Administration Dates Next Due Tdap 09/20/2024 Family [...] your living situation today? [facility] 09/20/2024 Living situation [...] Do you speak a language other than [facility]? No 09/20/2024 Do you want help with [...] Smear 2018 COVID-19 VACCINE (3 - season) 05/27/202504/2021, 10/02/2020 Influenza Vaccine (#1) 2025 Tobacco Cessation Counseling and Screening (12+) 01/16/2026 01/16/2025 DTAP/TDAP/TD VACCINES (4 - T d or Tdap) 09/20/2034 09/20/2024, 01/29/2020, 03/31/2009 Insurance [employer] Advance Directives For more information, please contact: [phone] * Full Code (Latest Code Status on File) Date Activated Date Inactivated Comments 09/20/2024 4:53 PM 09/22/2024 4:37 PM Care Teams Supervising Broker Relationship Specialty Start Date End Date Mini Jaramillo APRN [address] [address] PCP - General Nurse Practitioner 01/19/24
[2025-06-07 16:08] LABS: Uric Acid 5.8 mg/dl (2.5-6.2)
[2025-06-08 09:16] LABS: RA Latex Turbid. <10.0 IU/mL (<14.0)
== END 2025-06-07 23:59 | disposition home or self-care (01) ==
LOC: LAB 14:16
PROVIDERS: PCP Nurse Practitioner Family; Visit Provider Nurse Practitioner Family
DX: M25.50 Pain in unspecified joint (principal)
CPT/HCPCS: 36415; 84550; 85651; 86038; 86431

== ENCOUNTER 2025-09-24 11:07 | Outpatient (CLI) | payer OTHER, SELFPAY ==
[2025-09-24 14:07] LABS: Hematocrit 43.9 % (37.0-47.0); Hemoglobin 14.6 g/dL (12.2-16.2); Immature Granulocytes % 0.2 %; Mean Corpuscular HGB Conc 33.3 g/dL (31.8-35.4); Mean Corpuscular Hemoglobin 29.0 pg (27.0-31.2); Mean Corpuscular Volume 87.1 fl (81-99); Nucleated Red Blood Cells % 0 %; Platelet Count 426 K/mm3 (142-424); Red Blood Count 5.04 M/mm3 (4.20-5.40); Red Cell Distribution Width-SD 39.0 fL; White Blood Count 9.5 K/mm3 (4.8-10.8)
[2025-09-24 15:32] LABS: Vitamin B12 514 pg/mL (239-931)
--- OUTSIDE RECORDS SUMMARY | 2025-09-25 09:40 | XMS_ITS | Clinical Summary ---
Author Organization [facility] , [facility] Address [address] [place] [address] Phone Care Team Providers Care Senior Caregiver Name Role Phone BERNA BARAHONA Primary Care Provider [phone] Holden Alvarado MD Unavailable [phone] Reason for Referral 09/14/2022 Encounter for Physician Specified Date Recorded Target Due Date Referral Type Referring Prov ider Reason For Referral 09/14/2022 Sara Campbell MD referral to physician Last Documented On 2 10:13AM ; [facility] Reason for Visit and Chief Complaint The Chief Complaint is: Cervical pain Problems Includes: Problems addressed during this encounter and other active Problems Current Visit Onset Date Date of Diagnosis Resolved Date Provider Condition Status Neck Pain 09/14/2022 09/14/2022 Sara Campbell MD Active Last Documented On 5 1:41AM ; [facility] Plan of Treatment Pending Tests Order Diagnosis Results Due Ordering P rovider Therapy - Physical Therapy Cervical 09/14/22 Sara Campbell MD Last Documented On 2 12:40PM ; [facility] Instructions to patient Lose weight Last Documented On 2 10:13AM ; [facility] Assessments Includes: Assessments from this encounter Findings This is a 26-year-old female with neck pain and periscapular pain with cervical kyphosis - Last Documented On 09/14/2022 12:40PM ; [facility] I reviewed the patient's x-rays and MRIs with her and her mother in the office today. I discussed with her the importance of maintaining good posture in her neck. I showed her on her x-rays how she currently has cervical kyphosis that does not correct to the normal lordotic positioning on extension. I Berta start her in physical therapy to see if we can work on this. I also provided her prescription for Robaxin-750 milligrams 3 times daily as needed for a month for muscle spasm as needed. She will follow-up with me in about 3 months to see how things are going. - Last Documented On 09/14/2022 12:40PM ; [facility] Instructions Includes: Instructions from this encounter Instructions to patient Lose weight Last Documented On 2 10:13AM ; [facility] Medical Equipment - Implanted Devices Includes: Current Devices No Medical Equipment Recorded Medications Includes: Medications discussed during this encounter and other current Medications New / Renewed during this visit Sara Campbell MD on 09/14/2022 Methocarbamol 750 MG Oral Tablet Provider: Sara traylor MD 30 day supply: 90 tablet, 0 refills Diagnosis: Take 1 tablet PO up to three times a day, PRN Pharmacy: [facility] [address], [address] - Last Documented On 11:58AM By Margie Dougherty ; [facility] Current Medications (continue as prescribed) Montelukast Sodium 10 MG Oral Tablet 11/04/2024 Prov ider: BERNA BARAHONA Diagnosis: Last Documented On 5 1:36PM By [facility] Pregabalin 50 MG Oral Capsule 10/23/2024 Provider: BERNA BARAHONA Diagnosis: Last Documented On 5 1:36PM By Landry DALE [facility], [facility] hydrOXYzine HCl 25 MG Oral Tablet 10/13/2024 Provide r: BERNA BARAHONA Diagnosis: Last Documented On 5 1:36PM By [facility]ry [facility] Ondansetron HCl 4 MG Oral Tablet 10/13/2024 Provider : BERNA BARAHONA Diagnosis: Last Documented On 5 1:36PM By Landry Lee ; [facility], [facility] Pantoprazole Sodium 40 MG Or al Tablet Delayed Release 10/13/2024 Provider: Anahi Cloud APRN Diagnosis: Last Documented On 5 1:36PM By Landry Lee ; [facility], [facility] Desvenlafaxine Succinate ER 25 MG Oral Tablet Extended Release 24 Hour 10/12/2024 Provider: BERNA BARAHONA Diagnosis: Last Documented On 5 1:36PM By Landry Lee ; [facility], [facility] Cefdinir 300 MG Oral Capsule 10/08/2024 Provider: BERNA BARAHONA Diagnosis: Last Documented On 5 1:36PM By Landry Lee ; [facility], [facility] Medications Administered Includes: Administered Medications from this encounter No Administered Medications Recorded Vital Signs Includes: Vital Signs from this encounter Vital Name 09/14/2022 10:39A Blood Pressure Sitting R 142/93 Pulse Rate-Sitting (bpm) 86 Height (in) 70 Weight (lb) 250 Body Mass Index 35.9 Body Surface Area 2.3 Note: bb Last Documented: On 09/14/2022 10:40A M ; [facility], [facility] Results Includes: Results discussed during this encounter No Results Recorded For Specified Dates History of Present Illness Includes: History of Present Illness from this encounter BEVERLY Duncan is a 26 year old female. - Symptoms Popping Hot shower or bath and medication makes pain better Movement makes pain worse. - Allergy list reviewed - Problem list reviewed - Medication list reviewed - Previous history of new onset pain Injury is not work related or an automotive accident - Patient pain level from 1-10: 2 - History of Physical Therapy @ [facility] - History of Home Exercise - History of Chiropractic Dr. Kearney - No previous treatment. Medications used for this condition: Patient is a very pleasant 26-year-old female who is seeing me today for neck pain and mid back pain. Says that for about 5 years or so she has had pain in the back of her neck and in between her shoulder blades. She denies any radiation of this pain into her bilateral upper extremities. She denies any weakness numbness or tingling in her bilateral upper extremities. Denies any changes in her gait or difficulty with fine motor test in the hands. She works as a nurse. She has a medical history of asthma and interstitial cystitis. She has manage this with physical therapy although she only did this 3 years ago and has not done anything since. She takes occasional Advil and Tylenol for pain. Social History Description Last Updated Alcohol use 09/14/2022 Last Documented On 2 12:40PM ; [facility], [facility] Caffeine use 09/14/2022 Last Documented On 2 12:40PM ; [facility], [facility] Tobacco non-user 09/14/2022 Last Documented On 2 12:40PM ; [facility], [facility] No recent change in diet 09/14/2022 Last Documented On 2 12:40PM ; [facility], [facility] Not a current smoker. 09/14/2022 Last Documented On 2 12:40PM ; [facility], [facility] Not exercising regularly 09/14/2022 Last Documented On 2 12:40PM ; [facility], [facility] Not using drugs 09/14/2022 Last Documented On 2 12:40PM ; [facility], [facility] Sex - Female 04/04/2025 Last Documented On 5 1:03PM ; [facility], [facility] Smoking Status Unknown Procedures and Surgical History Includes: Procedures from this encounter Procedures Code Diagnosis Performing Provider Service L ocation Service Date use of tobacco assessment performed 1000F Last Documented On 2 10:13AM ; [facility] no influenza immunization contraindicate d Last Documented On 2 12:38PM ; [facility], [facility] follow-up visit in one month Last Documented On 2 10:13AM ; [facility], [facility] referral to physician Last Documented On 2 10:13AM ; [facility], [facility] an X-ray was performed 09/14/2022 Neck @ [facility] [id number] Last Documented On 2 12:37PM ; [facility], [facility] an MRI was performed 06/28/2022 CSpine @ [facility] [id number] Last Documented On 2 12:37PM ; [facility] Surgical History Last Updated History of History of Gallbladder 2021 Last Documented On 2 12:40PM ; [facility], [facility] Medical History Includes: Medical History addressed during this encounter Description Last Updated History of Anemia 09/14/2022 Last Documented On 2 12:40PM ; [facility], [facility] History of asthma 09/14/2022 Last Documented On 2 12:40PM ; [facility], [facility] History of depression 09/14/2022 Last Documented On 2 12:40PM ; [facility], [facility] History of Heartburn / Acid Reflux 09/14 Last Documented On 2 12:40PM ; [facility], [facility] History of Irregular Heartbeat 2 Last Documented On 2 12:40PM ; [facility], [facility] No recent immunization for flu 2 Last Documented On 2 12:40PM ; [facility], [facility] No recent immunization for pneumococcal pneumonia 09/14/2022 Last Documented On 2 12:40PM ; [facility], [facility] Family History Includes: Family History addressed during this encounter Description Last Updated Diabetes mellitus 09/14/2022 Last Documented On 2 12:40PM ; [facility], [facility] Family history of cancer 09/14/2022 Last Documented On 2 12:40PM ; [facility], [facility] Family history of heart disease 09/14/20 22 Last Documented On 2 12:40PM ; [facility], [facility] Family history of osteoporosis 2 Last Documented On 2 12:40PM ; [facility], [facility] Family history of systemic hypertension 09/14/2022 Last Documented On 2 12:40PM ; [facility], [facility] Review of Systems Includes: Review of Systems from this encounter Systemic: Feeling tired. No recent weight loss. Recent weight gain. Head: Headache. No sinus pain. Eyes: No vision problems and no Cataracts. Glasses/Contacts. No Glaucoma. Otolaryngeal: No hearing loss and no tinnitus. Cardiovascular: No chest pain or discomfort. Palpitations. No Hypertension and no High Cholesterol. Pulmonary: Daytime asthma symptoms. No chronic cough. No wheezing. Gastrointestinal: No heartburn and no abdominal pain. No Indigestion, no Acid Reflux, no Peptic Ulcer, and no GI Stomach Bleed. Ulcers. Endocrine: No hot flashes. Muscle weakness. No Diabetes, no Hypothyroid, and no Hyperthyroid. Hematologic: No easy bleeding and no tendency for easy bruising. Anemia. Musculoskeletal: No Arthritis. Lower back pain. No soft tissue swelling and no localized joint pain. Neurological: No dizziness and no convulsions. Numbness. Psychological: Anxiety. No emotional lability. Depression. No insomnia. Not crying for no reason. Skin: No dry skin. No Ulcers and no Scars. Rash: Allergic and Immunologic: Complaint of seasonal allergic reaction. Mental Status Includes: Mental Status from this encounter Description Anxiety Last Documented On 2 12:39PM ; [facility] Physical Exam Includes: Physical Exam from this encounter Immunizations Includes: Immunizations addressed during this encounter Vaccine Dose # Date Site Reaction(s) Status Source Influenza 1 09/14/2022 Complete (Refused - Patient objection) [facility] Last Documented On 2 12:39PM ; [facility] PCV (Pneumovax 23) 1 09/14/2022 Suspended (Contraindicated) [facility] Last Documented On 2 12:39PM ; [facility] Allergies Includes: Active Allergies Substance Type Reaction Onset Date Resolved Date Statu s Sulfa Antibiotics Allergy Skin Rashes / Eruption of skin 09/14/2022 Active Last Documented On 5 1:36PM ; [facility] Penicillins Allergy Skin Rashes / Eruption of skin 022 Active Last Documented On 5 1:36PM ; [facility] Care Senior Caregiver Name (Identifier) Role/Relation Location/Telecom Last Documented By BERNA BARAHONA ([id number]) Primary care physician (occupation) [address] [place] [address], , [id number] tel: Last Documented On 04/04/2025 1:03PM ; [facility] Holden Alvarado MD ([id number]) Assigned practitioner (occupation) [address], [place], [place], [address] tel: Last Documented On 04/04/2025 1:03PM ; [facility], [facility] Encounters Encounter Provider Location (Healthcare Service Location) Date Check-In Time Check-Out Time Diagnosis Encounter Disposition Physician Specified Sara ramirez MD [facility] 2021 10:05AM 11:41AM Payer Includes: Active Insurance Policies Plan Name (Payer ID) Coverage Type Member ID Group # Subscriber (ID) Relationship Effective Dates 1 - R [id number] Lakia Duncan Self Last Documented On 1:20PM ; [facility], [facility] Clinical Notes Includes: Clinical Notes from this encounter * Progress note Date Encounter Last Documented by 09/14/2022 Physician Specified Last indu begum on 09/14/2022; 12:40 PM, Sara Campbell MD; [facility], [facility] Active Problems & Conditions - Neck Pain Chief Complaint The Chief Complaint is: Cervical pain. Referred Here Referred by PCP. History of Present Illness Lakia Duncan is a 26 year old female. - Symptoms Popping Hot shower or bath and medication makes pain better Movement makes pain worse. - Allergy list reviewed - Problem list reviewed - Medication list reviewed - Previous history of new onset pain Injury is not work related or an automotive accident - Patient pain level from 1-10: 2 - History of Physical Therapy @ [facility] - History of Home Exercise - History of Chiropractic Dr. Kearney - No previous treatment. Medications used for this condition: Patient is a very pleasant 26-year-old female who is seeing me today for neck pain and mid back pain. Says that for about 5 years or so she has had pain in the back of her neck and in between her shoulder blades. She denies any radiation of this pain into her bilateral upper extremities. She denies any weakness numbness or tingling in her bilateral upper extremities. Denies any changes in her gait or difficulty with fine motor test in the hands. She works as a nurse. She has a medical history of asthma and interstitial cystitis. She has manage this with physical therapy although she only did this 3 years ago and has not done anything since. She takes occasional Advil and Tylenol for pain. Current Medication - Albuterol Sulfate HFA 108 (90 Base) MCG/ACT Inhalation Aerosol Solution take as directed 24 days, 0 refills - FLUoxetine HCl 20 MG Oral Capsule take as directed 30 days, 0 refills - metFORMIN HCl ER 500 MG Oral Tablet Extended Release 24 Hour take as directed 30 days, 0 refills - Metoprolol Succinate ER 25 MG Oral Tablet Extended Release 24 Hour take as directed 30 days, 0 refills - Trelegy Ellipta 200-62.5-25 MCG/ACT Inhalation Aerosol Powder Breath Activated take as directed 30 days, 0 refills Past Medical/Surgical History Reported: Immunization History: No recent immunization for flu and not for pneumococcal pneumonia. Diagnoses: Asthma Anemia Irregular Heartbeat Heartburn / Acid Reflux. Depression Procedural: - History of Gallbladder Social History Not a current smoker. Current diet: No recent change in diet. Caffeine use: Caffeine use. Tobacco use: Tobacco non-user. Alcohol: Alcohol use. Drug Use: Not using drugs. Habits: Not exercising regularly. Allergies - Penicillins Reaction: Skin Rashes / Eruption of skin - Sulfa Antibiotics Reaction: Skin Rashes / Eruption of skin Family History Cancer Heart disease Diabetes mellitus Systemic hypertension Osteoporosis Review Of Systems Systemic: Feeling tired. No recent weight loss. Recent weight gain. Head: Headache. No sinus pain. Eyes: No vision problems and no Cataracts. Glasses/Contacts. No Glaucoma. Otolaryngeal: No hearing loss and no tinnitus. Cardiovascular: No chest pain or discomfort. Palpitations. No Hypertension and no High Cholesterol. Pulmonary: Daytime asthma symptoms. No chronic cough. No wheezing. Gastrointestinal: No heartburn and no abdominal pain. No Indigestion, no Acid Reflux, no Peptic Ulcer, and no GI Stomach Bleed. Ulcers. Endocrine: No hot flashes. Muscle weakness. No Diabetes, no Hypothyroid, and no Hyperthyroid. Hematologic: No easy bleeding and no tendency for easy bruising. Anemia. Musculoskeletal: No Arthritis. Lower back pain. No soft tissue swelling and no localized joint pain. Neurological: No dizziness and no convulsions. Numbness. Psychological: Anxiety. No emotional lability. Depression. No insomnia. Not crying for no reason. Skin: No dry skin. No Ulcers and no Scars. Rash: Allergic and Immunologic: Complaint of seasonal allergic reaction. Physical Findings - Vitals taken 09/14/2022 10:39 am bb BP-Sitting R 142/93 mmHg Pulse Rate-Sitting 86 bpm Height 70 in Weight 250 lbs Body Mass Index 35.9 kg/m2 Body Surface Area 2.3 m2 Standard Measurements: - Patient was overweight. General: Alert and Oriented 3 Focused Musculoskeletal Exam of the Spine: No focal tenderness in the cervical, thoracic, or lumbar spine Motor EF WE T FF HI Right 5/5 5/5 5/5 5/5 5/5 Left 5/5 5/5 5/5 5/5 5/5 Sensation C5 C6 C7 C8 T1 Right 2 2 2 2 2 Left 2 2 2 2 2 Biceps reflex is 2+ bilaterally Brachioradialis reflex is 2+ bilaterally Triceps reflex is 2+ bilaterally Negative Goodman's bilaterally Patient is able to ambulate in the room without assistive device Symmetric, palpable radial pulses bilaterally Patellar reflex is 2+ bilaterally No ankle clonus Symmetric, palpable posterior tibialis pulse bilaterally Tests Cervical Spine X-ray Ap, Lateral, Flexion, and Extension views of the Cervical Spine were reviewed in the office today There is no obvious fracture or spondylolisthesis noted in the cervical spine There is resting kyphosis of the cervical spine under neutral lateral x-ray that worsens on flexion and corrects modestly on extension although it still remains kyphotic on extension MRI cervical spine There is no meaningful central canal or bilateral foraminal stenosis noted throughout her cervical spine MRI User Defined 5 This is a 26-year-old female with neck pain and periscapular pain with cervical kyphosis I reviewed the patient's x-rays and MRIs with her and her mother in the office today. I discussed with her the importance of maintaining good posture in her neck. I showed her on her x-rays how she currently has cervical kyphosis that does not correct to the normal lordotic positioning on extension. I Berta start her in physical therapy to see if we can work on this. I also provided her prescription for Robaxin-750 milligrams 3 times daily as needed for a month for muscle spasm as needed. She will follow-up with me in about 3 months to see how things are going. Previous Tests Imaging: X-Ray: An X-ray was performed 09/14/2022 Neck @ [facility]. MRI Scan: An MRI was performed 06/28/2022 [place] @ [facility]. Therapy - Follow-up visit in one month. - Referral to physician. Vaccinations - Influenza Dose #1 Status: Refused Patient Objection Date: 09/14/2022 - PCV (Pneumovax 23) Dose #1 Status: Contraindicated Date: 09/14/2022 Counseling/Education - Lose weight Plan StartCited - Other Therapy/Physical Therapy: Cervical Instructions: See PT order attached Methocarbamol 750 MG tablet Take 1 tablet PO up to three times a day, PRN, 30 days, 0 refills EndCited Practice Management Use of tobacco assessment performed; No influenza immunization contraindicated. Care Team - BERNA BARAHONA Notes This dictation was done with voice recognition software and may contain errors and omissions.
--- OUTSIDE RECORDS SUMMARY | 2025-09-25 09:40 | XMS_ITS | Clinical Summary ---
Author Organization [facility] Address [address] [place] [id number] Care Team Providers Care Airfreight Operations Agent Name Role Phone Unknown, Pcp Primary Care Provider Unavailabl e Source Comments [facility] is fully rolled out with thefollowing exceptions:[facility] Allergies Active Allergy Reactions Criticality Noted [...] 1998 DTAP/Tdap/Td IMMUNIZATION (1 - Tdap) 2004 Yearly Physical Ages 3-18+ 2008 VARICELLA IMMUNIZATION (1 of 2 - 13+ 2-dose series) 2010 HEPATITIS B IMMUNIZATION (1 of 3 - 19+ 3-dose series) 2016 AMB SEASONAL FLU VACCINE (#1) 05/27/2025 COVID-19 Vaccine (1 - 2024-2 6 season) 2025 HIB IMMUNIZATION Aged Out No longer e ligible based on patient's age to complete this topic HPV IMMUNIZATION (No Doses Required) Completed IPV IMMUNIZATION Aged Out No longer e [...] patient's age to complete this topic Insurance [facility] [place] [id number] Care Teams Airfreight Operations Agent Relationship Specialty Start Date End Date Unknown, Pcp PCP - General 02/26/13
--- OUTSIDE RECORDS SUMMARY | 2025-09-25 09:40 | XMS_ITS ---
Care Plan - [facility], [facility] Created on: September 25, 2025 Yanira Duncanla : 1995 Sex: Female Author Organization [facility] , [facility] Address [address] [place] [address] Phone Care Team Providers Care Ironing Worker Name Role Phone BERNA BARAHONA Primary Care Provider [phone] Christiano CURTIS, Holden Spivey Unavailable [phone]
--- OUTSIDE RECORDS SUMMARY | 2025-09-25 09:40 | XMS_ITS | Clinical Summary ---
Author Organization [facility] Address [address] [place] [address] Phone Care Team Providers Care Sanipractic Physician Name Role Phone Marco Antonio Duran MD [phone] [ ] Conditions or Problems Problem Name Problem Code Onset Date Status Entry Date Provider Comment Standard Description Annotate Eosinophilic Esophagitis 308788422 (SNOMED CT) 10/03 Active 10/03 Renitatiffany Chanel Eosinophilic esophagitis GERD (gastroesopha geal reflux disease) 393830617 (SNOMED CT) 10/03 Active 10/03 Renita Darío Gastroesophageal reflux disease Obesity due to excess calories E66.09 (ICD-10-CM ) 10/03 Active 10/03 Renita Darío Other obesity due to excess calories Toxic effect of venom of black spider, accidental (unintentiona l), subsequent encounter T63.311D (ICD-10-CM ) 10/03 Active 10/03 Renita Darío Toxic effect of venom of black spider, accidental (unintentional), subsequent encounter Cellulitis, foot, left 412714891 (SNOMED CT) 10/03 Active 10/03 Renita Darío Cellulitis of foot Cellulitis, toe, left 22934011 (SNOMED CT) 10/03 Active 10/03 Renita Darío Cellulitis of toe Medications Medication Instructions Start Date Stop Date Generic Name NDC Provider TRULANCE 3 MG TABS Take 3 mg by mouth once a day plecanatide 16438857439 Donato Valerio METFORMIN HCL ER 500 MG [id number] Take 3 tablet by mouth every night metformin (glucophage xr) 20534403064 Donato Valerio HYDROXYZINE HCL 25 MG TABS Take 1 tablet by mouth every night hydroxyzine hcl 45662572074 Donato Harvey uff CETIRIZINE HCL 10 MG TABS Take 1 tablet by mouth once a day cetirizine 62924611726 Donato Valerio IPRATROPIUM-ALBUT JAYDA 0.5-2.5 (3) MG/3ML SOLN 3 ml every six hours as needed ipratropium-albu terol 09827770486 Donato Valerio dupilumab 300 mg/2 mL pnij Inject 300 mg subcutaneously once a day dupilumab 300 mg/2 mL pnij Donato Valerio METOPROLOL SUCCINATE ER 25 MG [id number] Take 1 tablet by mouth once a day metoprolol succinate 54192428655 Donato Valerio BUSPIRONE HCL 7.5 MG TABS Take 1 tablet by mouth once a day buspirone 54268245633 Donato Valerio polysaccharide iron complex 180 mg iron cap Take 1 capsule by mouth twice a day polysaccharide iron complex 180 mg iron cap Donato Valerio ALBUTEROL SULFATE HFA 108 (90 Base) MCG/ACT AERS Inhale 2 puff by mouth every six hours as needed albuterol sulfate 52053255593 Donato Valerio METHOCARBAMOL 750 MG TABS Take 1 tablet by mouth three times a day as needed methocarbamol 09216915136 Donato Valerio PREGABALIN 50 MG CAPS Take 1-2 capsule by mouth every night pregabalin 11286719912 Donato Valerio DESVENLAFAXINE SUCCINATE ER 25 MG [id number] Take 1 tablet by mouth once a day desvenlafaxine succinate 88294558417 Donato Valerio MELOXICAM 15 MG TABS Take 1 tablet by mouth once a day meloxicam 54714924099 Donato Valerio MONTELUKAST SODIUM 10 MG TABS once a day montelukast 69442495697 Donato Valerio Lo Loestrin Fe (norethindrone-e. estradiol-iron) once a day norethindrone-e. estradiol-iron Donato Valerio PROTONIX 40 MG TBEC once a day pantoprazole 38119756333 Donato Valerio Iron (ferrous sulfate) (ferrous sulfate) twice a day ferrous sulfate Donaot Stubbs ff CEFDINIR 300 MG CAPS twice a day cefdinir 01908640661 Donato Valerio PREGABALIN 50 MG CAPS Take 1-2 capsules (50-100 mg total) by mouth once at bedtime. 10/10 pregabalin 64937901049 QIE qieuser polysaccharide iron complex 180 mg iron cap Take 1 capsule by mouth 2 (two) times daily. 10/10 polysaccharide iron complex 180 mg iron cap QIE qieuser TRULANCE 3 MG TABS Take 3 mg by mouth daily. 10/10 plecanatide 19847231406 QIE qieuser METOPROLOL SUCCINATE ER 25 MG [id number] Take 1 tablet (25 mg total) by mouth daily. 10/10 metoprolol succinate 51160065822 QIE qieuser METHOCARBAMOL 750 MG TABS Take 1 tablet (750 mg total) by mouth 3 (three) times daily as needed for muscle spasms. 10/10 methocarbamol 60617086437 QIE qieuser METFORMIN HCL ER 500 MG [id number] Take 3 tablets (1,500 mg total) by mouth daily with dinner. 10/10 metformin (glucophage xr) 65852780607 QIE qieuser MELOXICAM 15 MG TABS Take 1 tablet (15 mg total) by mouth daily. 10/10 meloxicam 02174450616 QIE qieuser IPRATROPIUM-ALBUT JAYDA 0.5-2.5 (3) MG/3ML SOLN Take 3 mLs by nebulization every 6 (six) hours as needed. 0 ipratropium-albu terol 91010394331 QIE qieuser HYDROXYZINE HCL 25 MG TABS Take 1 tablet (25 mg total) by mouth nightly. 10/10 hydroxyzine hcl 83461565573 QIE qieuser dupilumab 300 mg/2 mL pnij Inject 300 mg subcutaneously every 14 (fourteen) days. 10/10 dupilumab 300 mg/2 mL pnij QIE qieuser DESVENLAFAXINE SUCCINATE ER 25 MG [id number] Take 1 tablet (25 mg total) by mouth daily. 10/10 desvenlafaxine succinate 03064657240 QIE qieuser CETIRIZINE HCL 10 MG TABS Take 1 tablet (10 mg total) by mouth daily. 10/10 cetirizine 67498301407 QIE qieuser BUSPIRONE HCL 15 MG TABS Take 1 tablet (15 mg total) by mouth 3 (three) times daily. 10/10 buspirone 53120163160 QIE qieuser ALBUTEROL SULFATE HFA 108 (90 Base) MCG/ACT AERS Inhale 2 puffs by mouth via inhaler every 6 (six) hours as needed for wheezing or shortness of breath. 10/10 albuterol sulfate 43277057191 QIE qieuser Medications Administered No information available. 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
--- OUTSIDE RECORDS SUMMARY | 2025-09-25 09:41 | XMS_ITS | Clinical Summary ---
Author Organization Healthcare Address [address] [place] [address] Care Team Providers Care Box Worker Name Role Phone Foreign Mccrary MD Primary Care Provider [phone] Family History Medical History Relation Name Comments [...] of Treatment Not on file Care Teams Box Worker Relationship Specialty Start Date End Date Foreign Mccrary MD [facility] [id number] PCP - General 02/06/21
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
--- OUTSIDE RECORDS SUMMARY | 2025-09-25 09:41 | XMS_ITS | Referral Summary ---
Author Organization [employer] ([place], [place], [place], [place], [place]) Address [address] [place] [address] Care Team Providers Care Burglar Alarm Assembler Name Role Phone Mini Jaramillo APRN Primary Care Provider [phone] Allergies Active Allergy Reactions Criticality Noted Date [...] the past 12 months, has t he [employer], [employer], oil, or water [employer] threatened to shut off services in your [...] Do you speak a language other than [place] [employer]? No 09/20/2024 Do you want help with [...] Plan of Treatment Not on file Insurance [facility] Advance Directives For more information, please contact: [phone] * Full Code (Latest Code Status on File) Date Activated Date Inactivated Comments 09/20/2024 4:53 PM 09/22/2024 4:37 PM Care Teams Burglar Alarm Assembler Relationship Specialty Start Date End Date Jaramillo, Mini, HEALTHCARE PROF [address] [place] [address] PCP - General Nurse Practitioner 01/19/24
--- OUTSIDE RECORDS SUMMARY | 2025-09-25 09:41 | XMS_ITS | Clinical Summary ---
Author Organization [employer] ([place], [place], [place], [place], [place]) Address [address] [place] [address] Care Team Providers Care Brush And Broom Clipper Name Role Phone Mini Jaramillo APRN Primary [...] the past 12 months, has t he [employer], gas, oil, or water company threatened to [...] Do you speak a language other than [facility]? No 09/20/2024 Do you want help [...] Advance Directives For more information, please contact: [phone] * Full Code (Latest Code Status on File) Date Activated Date Inactivated Comments 09/20/2024 4:53 PM 09/22/2024 4:37 PM Care Teams Brush And Broom Clipper Relationship Specialty Start Date End Date Mini Jaramillo APRN [address] [place] [address] PCP - General Nurse Practitioner 01/19/24
--- OUTSIDE RECORDS SUMMARY | 2025-09-25 09:41 | XMS_ITS ---
Author Organization [facility] , [facility] Address [address] [place] [address] Phone Care Team Providers Care Wood Casket Assembler Name Role Phone BERNA BARAHONA Primary Care Provider [phone] Holden Alvarado MD Unavailable [phone] Reason for Referral 11/08/2024 Encounter for NEW PROBLEM/EST PT Date Recorded Target Due Date Referral Type Referring Prov ider Reason For Referral 11/08/2024 DEVI LEVI PA-C referral to physician Last Documented On 5 1:36PM ; [facility] 09/14/2022 Encounter for Physician Specified Date Recorded Target Due Date Referral Type Referring Prov ider Reason For Referral 09/14/2022 Sara Campbell MD referral to physician Last Documented On 2 10:13AM ; [facility] Problems Includes: Active, inactive, and resolved Problems All Visits Onset Date Date of Diagnosis Resolved Date Provid er Condition Status Neck Pain 09/14/2022 09/14/2022 Sara Campbell MD Active Last Documented On 5 1:41AM ; [facility] Plan of Treatment Instructions to patient Lose weight Last Documented On 5 1:36PM ; [facility] Lose weight Last Documented On 2 10:13AM ; [facility], [facility] Assessments Includes: Assessments for all patient encounters Findings Encounter Date Overweight NEW PROBLEM/EST PT with DEVI LEVI PA-C 11/08/2024 Last Documented On 5 9:43AM ; [facility] Instructions Includes: Instructions for all patient encounters Instructions to patient Lose weight Last Documented On 5 1:36PM ; [facility] Lose weight Last Documented On 2 10:13AM ; [facility] Medical Equipment - Implanted Devices Includes: Current and historical Devices No Medical Equipment Recorded Medications Includes: Current and historical Medications Current Medications (continue as prescribed) Montelukast Sodium 10 MG Oral Tablet 11/04/2024 Prov ider: BERNA BARAHONA Diagnosis: Last Documented On 5 1:36PM By Landry Lee ; [facility] Pregabalin 50 MG Oral Capsule 10/23/2024 Provider: BERNA BARAHONA Diagnosis: Last Documented On 5 1:36PM By Landry Lee ; [facility] hydrOXYzine HCl 25 MG Oral Tablet 10/13/2024 Provide r: BERNA BARAHONA Diagnosis: Last Documented On 5 1:36PM By Landry Lee ; [facility] Ondansetron HCl 4 MG Oral Tablet 10/13/2024 Provider : BERNA BARAHONA Diagnosis: Last Documented On 5 1:36PM By Landry Lee ; [facility] Pantoprazole Sodium 40 MG Or al Tablet Delayed Release 10/13/2024 Provider: Anahi Cloud APRN Diagnosis: Last Documented On 5 1:36PM By Landry Lee ; [facility] Desvenlafaxine Succinate ER 25 MG Oral Tablet Extended Release 24 Hour 10/12/2024 Provider: BERNA BARAHONA Diagnosis: Last Documented On 5 1:36PM By Landry Lee ; [facility] Cefdinir 300 MG Oral Capsule 10/08/2024 Provider: BERNA BARAHONA Diagnosis: Last Documented On 5 1:36PM By Landry Lee ; [facility] Past Medications on file Methocarbamol 750 MG Oral Tablet 09/14/2022 - 10/14/2022 Provider: Sara Denny MD Diagnosis: Take 1 tablet PO up to three times a day, PRN Last Documented On 2 11:58AM By Margie Dougherty ; [facility] metFORMIN HCl ER 500 MG Oral Tablet Extended Release 24 Hour 09/10/2022 - 11/08/2024 Provider: Diagnosis: Last Documented On 5 1:36PM By Landry Lee ; [facility], [facility] FLUoxetine HCl 20 MG Oral Capsule 09/03/2022 - 025 Provider: Diagnosis: Last Documented On 5 1:36PM By Landry Lee ; [facility], [facility] Metoprolol Succinate ER 25 M G Oral Tablet Extended Release 24 Hour 09/03/2022 - 11/08/2024 Provider: RANJAN BARAHONA Diagnosis: Last Documented On 5 1:36PM By Landry Lee ; [facility] Trelegy Ellipta 200-62.5-25 MCG/ACT Inhalation Aerosol Powder Breath Activated 09/01/2022 - 11/08/2024 Provider: Diagnosis: Last Documented On 5 1:36PM By Landry Lee ; [facility] levoFLOXacin 500 MG Oral Tablet 08/06/2022 - Provider: BERNA BARAHONA Diagnosis: Last Documented On 12:33PM By Sara Campbell ; [facility] predniSONE 20 MG Oral Tablet 08/06/2022 - 08/11/2022 P rovider: BERNA BARAHONA Diagnosis: Last Documented On 12:33PM By Sara Campbell ; [facility] Albuterol Sulfate HFA 108 (9 0 Base) MCG/ACT Inhalation Aerosol Solution 07/31/2022 - 11/08/2024 Provider: Diagnosis: Last Documented On 5 1:36PM By Landry Lee ; [facility] Cefdinir 300 MG Oral Capsule 06/11/2022 - 06/18/2022 P rovider: BERNA BARAHONA Diagnosis: Last Documented On 2 12:33PM By Sara Campbell ; [facility], [facility] Medications Administered Includes: Administered Medications in patient's chart No Administered Medications Recorded Vital Signs Includes: Vital Signs from 09/25/2024 through 09/25/2025 Vital Name 11/08/2024 01:54P Height (in) 70 Weight (lb) 245 Body Mass Index 35.2 Body Surface Area 2.3 Note: cd Last Documented: On 11/08/2024 1:54PM ; [facility], [facility] Results Includes: Results from 09/25/2024 through 09/25/2025 No Results Recorded For Specified Dates Social History Description Last Updated Alcohol use 09/14/2022 Last Documented On 2 12:40PM ; [facility] Caffeine use 09/14/2022 Last Documented On 2 12:40PM ; [facility], [facility] Tobacco non-user 09/14/2022 Last Documented On 12:40PM ; [facility], [facility] No recent change in diet 09/14/2022 Last Documented On 2 12:40PM ; [facility], [facility] Not a current smoker. 09/14/2022 Last Documented On 2 12:40PM ; [facility], [facility] Not exercising regularly 09/14/2022 Last Documented On 2 12:40PM ; [facility], [facility] Not using drugs 09/14/2022 Last Documented On 2 12:40PM ; [facility], [facility] Sex - Female 04/04/2025 Last Documented On 5 1:03PM ; [facility], [facility] Smoking Status Unknown Procedures and Surgical History Includes: Procedures from 09/25/2024 through 09/25/2025 Procedures Code Diagnosis Performing Provider Service Location Service Date C-Spine 4 views [id number] Cervicalgia DEVI BERG PA-C [facility] [place] 11/08/2024 Last Documented On 5 9:01AM ; [facility], [facility] Surgical History Last Updated History of History of Gallbladder 2021 Last Documented On 2 12:40PM ; [facility], [facility] Medical History Includes: Medical History in patient's chart Description Last Updated History of Anemia 09/14/2022 Last Documented On 2 12:40PM ; [facility], [facility] History of asthma 09/14/2022 Last Documented On 2 12:40PM ; [facility], [facility] History of depression 09/14/2022 Last Documented On 2 12:40PM ; [facility], [facility] History of Heartburn / Acid Reflux 09/14 Last Documented On 2 12:40PM ; [facility], [facility] History of Irregular Heartbeat 2 Last Documented On 2 12:40PM ; [facility], [facility] No recent immunization for flu 2 Last Documented On 2 12:40PM ; [facility], [facility] No recent immunization for pneumococcal pneumonia 09/14/2022 Last Documented On 2 12:40PM ; [facility], [facility] Family History Includes: Family History in patient's chart Description Last Updated Diabetes mellitus 09/14/2022 Last Documented On 2 12:40PM ; [facility], [facility] Family history of cancer 09/14/2022 Last Documented On 2 12:40PM ; [facility], [facility] Family history of heart disease 09/14/20 22 Last Documented On 2 12:40PM ; [facility], [facility] Family history of osteoporosis 2 Last Documented On 2 12:40PM ; [facility], [facility] Family history of systemic hypertension 09/14/2022 Last Documented On 2 12:40PM ; [facility], [facility] Mental Status Description Anxiety Last Documented On 5 1:36PM ; [facility], [facility] Anxiety Last Documented On 2 12:39PM ; [facility], [facility] Immunizations Includes: Immunizations in patient's chart Vaccine Dose # Date Site Reaction(s) Status Source Influenza 1 09/14/2022 Complete (Refused - Patient objection) [facility], [facility] Last Documented On 2 12:39PM ; [facility], [facility] PCV (Pneumovax 23) 1 09/14/2022 Suspended (Contraindicated) [facility], [facility] Last Documented On 2 12:39PM ; [facility], [facility] Allergies Includes: Active, inactive, and resolved Allergies Substance Type Reaction Onset Date Resolved Date Statu s Sulfa Antibiotics Allergy Skin Rashes / Eruption of skin 09/14/2022 Active Last Documented On 1:36PM ; [facility] Penicillins Allergy Skin Rashes / Eruption of skin 022 Active Last Documented On 1:36PM ; [facility] Care Wood Casket Assembler Name (Identifier) Role/Relation Location/Telecom Last Documented By BERNA BARAHONA ([id number]) Primary care physician (occupation) [address] [place] [address], [place], [address] tel:[phone] Last Documented On 04/04/2025 1:03PM ; [facility] Holden Alvarado MD ([id number]) Assigned practitioner (occupation) [address] [place] [address], , [address] tel:[phone] Last Documented On 04/04/2025 1:03PM ; [facility] Encounters Includes: Encounters from 09/25/2024 through 09/25/2025 Encounter Provider Location (Healthcare Service Location) Date Check-In Time Check-Out Time Diagnosis Encounter Disposition NEW PROBLEM/EST PT DEVI LEVI [facility] 2024 1:17PM 1:59PM Overweight Payer Includes: Active Insurance Policies Plan Name (Payer ID) Coverage Type Member ID Group # Subscriber (ID) Relationship Effective Dates 1 - R ([id number]) [id number] Lakia Duncan Self Last Documented On 1:20PM ; [facility] Clinical Notes Includes: Signed Clinical Notes starting from 09/09/2022 * Progress note Date Encounter Last Documented by 11/08/2024 NEW PROBLEM/EST PT Last document ed on 12/06/2024; 9:43 AM, DEVI LEVI PA-C; [facility] Active Problems & Conditions - [...] 2 - History of Physical Therapy @ [facility] - History of Home Exercise - [...] exercises and therapy. He was also taking [id number] medications as needed to manage her symptoms. [...] X-Ray: X-ray 09/14/2022 Neck @ [facility] 11/08/24 [facility]. MRI Scan: An MRI was performed 06/28/2022 [place] @ [facility] 03/05/2024 [facility]. Therapy - Follow-up visit [...] immunization contraindicated. Care Team - BERNA BARAHONA Health Reminders - Assess BMI satisfied 11/08/2024. - Assess Tobacco Use satisfied 09/14/2022. - Follow Up Plan BMI Management satisfied 11/08/2024.
--- OUTSIDE RECORDS SUMMARY | 2025-09-25 09:41 | XMS_ITS | Clinical Summary ---
Author Organization [facility] Address [address] [place] [address] Phone Care Team Providers Care Engineering Designer Name Role Phone BERNA BARAHONA Primary Care Provider [phone] Holden Alvarado MD Unavailable [phone] Reason for Visit and Chief Complaint facet Problems Includes: Problems addressed during this encounter and other active Problems All Visits Onset Date Date of Diagnosis Resolved Date Provid er Condition Status Neck Pain 09/14/2022 09/14/2022 Saar Campbell MD Active Last Documented On 5 1:41AM ; [facility], [facility] Plan of Treatment No Plan of Treatment Recorded Assessments Includes: Assessments from this encounter No Assessments Recorded Medical Equipment - Implanted Devices Includes: Current Devices No Medical Equipment Recorded Medications Includes: Medications discussed during this encounter and other current Medications Current Medications (continue as prescribed) Montelukast Sodium 10 MG Oral Tablet 11/04/2024 Prov ider: BERNA BARAHONA Diagnosis: Last Documented On 5 1:36PM By Landry Lee ; [facility], [facility] Pregabalin 50 MG Oral Capsule 10/23/2024 Provider: BERNA BARAHONA Diagnosis: Last Documented On 5 1:36PM By Landry Lee ; [facility], [facility] hydrOXYzine HCl 25 MG Oral Tablet 10/13/2024 Provide r: BERNA BARAHONA Diagnosis: Last Documented On 5 1:36PM By Landry Lee ; [facility], [facility] Ondansetron HCl 4 MG Oral Tablet 10/13/2024 Provider : BERNA BARAHONA Diagnosis: Last Documented On 1:36PM By Landry Lee ; [facility], [facility] Pantoprazole Sodium 40 MG Or al Tablet Delayed Release 10/13/2024 Provider: Anahi Cloud APRN Diagnosis: Last Documented On 1:36PM By Landry Lee ; [facility], [facility] Desvenlafaxine Succinate ER 25 MG Oral Tablet Extended Release 24 Hour 10/12/2024 Provider: BERNA BARAHONA Diagnosis: Last Documented On 5 1:36PM By Landry Lee ; [facility], [facility] Cefdinir 300 MG Oral Capsule 10/08/2024 Provider: BERNA BARAHONA Diagnosis: Last Documented On 1:36PM By Landry Lee ; [facility] Medications Administered Includes: Administered Medications from this encounter No Administered Medications Recorded Results Includes: Results discussed during this encounter No Results Recorded For Specified Dates History of Present Illness Includes: History of Present Illness from this encounter No History of Present Illness Recorded Social History Description Last Updated Sex - Female 04/04/2025 Last Documented On 1:03PM ; [facility] Smoking Status Unknown Medical History Includes: Medical History addressed during this encounter No Medical History Recorded Family History Includes: Family History addressed during this encounter No Family History Recorded Review of Systems Includes: Review of Systems from this encounter No Review of Systems Recorded Physical Exam Includes: Physical Exam from this encounter No Physical Exam Recorded Allergies Includes: Active Allergies Substance Type Reaction Onset Date Resolved Date Statu s Sulfa Antibiotics Allergy Skin Rashes / Eruption of skin 09/14/2022 Active Last Documented On 5 1:36PM ; [facility] Penicillins Allergy Skin Rashes / Eruption of skin 022 Active Last Documented On 1:36PM ; [facility] Care Engineering Designer Name (Identifier) Role/Relation Location/Telecom Last Documented By BERNA BARAHONA ([id number]) Primary care physician (occupation) [address] [place] [address], , [id number] tel: Last Documented On 04/04/2025 1:03PM ; [facility] Holden Alvarado MD ([id number]) Assigned practitioner (occupation) [address], [place], [place], , [address] tel: Last Documented On 04/04/2025 1:03PM ; [facility] Payer Includes: Active Insurance Policies Plan Name (Payer ID) Coverage Type Member ID Group # Subscriber (ID) Relationship Effective Dates 1 - R ([id number]) [id number] Lakia Shankar Last Documented On 1:20PM ; [facility]
[2025-09-25 14:50] LABS: EBV Nuclear Antigen Ab, IgG 526.0 U/mL (0.0-17.9)
== END 2025-09-24 23:59 | disposition home or self-care (01) ==
LOC: LAB.DROPOF 09-25 09:36
PROVIDERS: PCP Nurse Practitioner Family; Visit Provider Nurse Practitioner Family
DX: J02.9 Acute pharyngitis, unspecified (principal); E53.8 Deficiency of other specified B group vitamins
CPT/HCPCS: 82607; 85025; 86664; 86665; 87070; 87077